=== PATIENT | male | born 1955 | race Caucasian/White ===

== ENCOUNTER 2020-03-29 08:30 | Outpatient (REF) | payer MEDICARE, SELFPAY ==
[2020-03-29 12:06] LABS: Alanine Aminotransferase 33 U/L (0-40); Albumin Level 3.8 g/dL (3.5-5.0); Alkaline Phosphatase 91 U/L (39-117); Anion Gap 11 (12-20); Aspartate Amino Transferase 24 U/L (5-37); Bilirubin Total 0.4 mg/dL (0.0-1.0); Blood Urea Nitrogen 25 mg/dL (9-16); Calcium 9.3 mg/dL (8.4-10.2); Carbon Dioxide 31 mmol/L (22-29); Chloride 104 mmol/L (96-108); Cholesterol 119 mg/dL; Estimated Glomerular Filt Rate 48; Glucose Fasting 119 mg/dL (60-99); HDL Cholesterol 40 mg/dL; LDL Cholesterol Calculated 56 mg/dl; Potassium 4.4 mmol/l (3.3-5.1); Sodium 142 mmol/L (135-145); Total Protein 6.6 g/dL (6.5-8.0); Triglycerides 116 mg/dL
[2020-03-29 12:08] LABS: Creatinine Urine 244.64 mg/dL; Microalbum/Creatinine Ratio Ur 108.7 ug/mg cr
[2020-03-29 12:11] LABS: Estimated Average Glucose 252 mg/dL; Hemoglobin A1c % 10.4 %
== END 2020-03-29 08:31 | disposition home or self-care (01) ==
LOC: HO.MANLR 08:30
PROVIDERS: PCP Internal Medicine; Visit Provider Internal Medicine
DX: E10.22 Type 1 diabetes mellitus with diabetic chronic kidney disease (principal)
CPT/HCPCS: 80053; 80061; 82043; 83036

== ENCOUNTER 2020-05-20 10:26 | Outpatient (REF) | payer MEDICARE, SELFPAY ==
[2020-05-20 13:42] LABS: Estimated Average Glucose 237 mg/dL; Hemoglobin A1c % 9.9 %
== END 2020-05-20 10:27 | disposition home or self-care (01) ==
LOC: HO.MANLR 10:26
PROVIDERS: PCP Internal Medicine; Visit Provider Internal Medicine
DX: E10.22 Type 1 diabetes mellitus with diabetic chronic kidney disease (principal)
CPT/HCPCS: 36415; 83036

== ENCOUNTER 2020-07-22 09:46 | Outpatient (REF) | payer MEDICARE, SELFPAY ==
[2020-07-22 12:26] LABS: CDIFF Ag Negative (Negative); CDIFF Internal ctrl Dots and bkg OK (V); CDiff Toxin Negative (Negative)
== END 2020-07-22 09:47 | disposition home or self-care (01) ==
LOC: HO.MANLNP 09:46
PROVIDERS: PCP Internal Medicine; Visit Provider Internal Medicine
DX: R19.7 Diarrhea, unspecified (principal)
CPT/HCPCS: 87045; 87046; 87177; 87209; 87324; 87449

== ENCOUNTER 2021-03-24 11:05 | Outpatient (REF) | payer MEDICARE, SELFPAY ==
[2021-03-24 13:01] LABS: Estimated Average Glucose 298 mg/dL
[2021-03-24 13:14] LABS: Alanine Aminotransferase 50 U/L (0-40); Alkaline Phosphatase 114 U/L (39-117); Anion Gap 15 (12-20); Aspartate Amino Transferase 42 U/L (5-37); Bilirubin Total 0.3 mg/dL (0.0-1.0); Blood Urea Nitrogen 30 mg/dL (9-16); Calcium 10.1 mg/dL (8.4-10.2); Carbon Dioxide 26 mmol/L (22-29); Chloride 104 mmol/L (96-108); Cholesterol 135 mg/dL; Estimated Glomerular Filt Rate 47; Glucose Fasting 95 mg/dL (60-99); HDL Cholesterol 43 mg/dL; LDL Cholesterol Calculated 64 mg/dl; Potassium 4.5 mmol/L (3.3-5.1); Sodium 140 mmol/L (135-145); Total Protein 7.1 g/dL (6.5-8.0); Triglycerides 140 mg/dL
[2021-03-24 13:28] LABS: Creatinine Urine 168.98 mg/dL
[2021-03-24 13:39] LABS: Microalbum/Creatinine Ratio Ur 389.3 ug/mg cr
== END 2021-03-24 11:06 | disposition home or self-care (01) ==
LOC: HO.MANLDS 11:05
PROVIDERS: PCP Internal Medicine; Visit Provider Internal Medicine
DX: E10.22 Type 1 diabetes mellitus with diabetic chronic kidney disease (principal)
CPT/HCPCS: 36415; 80053; 80061; 82043; 83036

== ENCOUNTER 2021-08-15 10:45 | Outpatient (REF) | payer MEDICARE, SELFPAY ==
[2021-08-15 13:32] LABS: Estimated Average Glucose 186 mg/dL; Hemoglobin A1c % 8.1 %
== END 2021-08-15 10:46 | disposition home or self-care (01) ==
LOC: HO.MANLDS 10:45
PROVIDERS: PCP Internal Medicine; Visit Provider Internal Medicine
DX: E10.22 Type 1 diabetes mellitus with diabetic chronic kidney disease (principal)
CPT/HCPCS: 36415; 83036

== ENCOUNTER 2022-10-20 10:53 | Outpatient (REF) | payer MEDICARE, SELFPAY ==
[2022-10-20 13:39] LABS: Estimated Average Glucose 123 mg/dL; Hemoglobin A1c % 5.9 %
[2022-10-20 14:04] LABS: Alanine Aminotransferase 48 U/L (0-40); Albumin Level 3.9 g/dL (3.5-5.0); Alkaline Phosphatase 120 U/L (39-117); Anion Gap 14 (12-20); Aspartate Amino Transferase 30 U/L (5-37); Bilirubin Total 0.4 mg/dL (0.0-1.0); Blood Urea Nitrogen 70 mg/dL (9-16); Calcium 10.1 mg/dL (8.4-10.2); Carbon Dioxide 21 mmol/L (22-29); Chloride 109 mmol/L (96-108); Estimated Glomerular Filt Rate 20; Glucose Random 160 mg/dL (60-115); Potassium 5.2 mmol/L (3.3-5.1); Sodium 139 mmol/L (135-145); Total Protein 6.8 g/dL (6.5-8.0)
[2022-10-20 14:11] LABS: Prostate Specific Antigen < 0.10 ng/mL (<0.05-4.0)
== END 2022-10-20 10:54 | disposition home or self-care (01) ==
LOC: HO.MANLNP 10:53
PROVIDERS: Visit Provider Internal Medicine
DX: Z12.5 Encounter for screening for malignant neoplasm of prostate (principal); E10.9 Type 1 diabetes mellitus without complications
CPT/HCPCS: 36415; 80053; 83036; 84153

== ENCOUNTER 2024-07-14 14:49 | Outpatient (REF) | payer MEDICARE, SELFPAY ==
--- OUTSIDE RECORDS SUMMARY | 2024-07-14 16:19 | XMS_ITS | Encounter Summary ---
Author Organization [facility], Address [address] [place] [address] Phone Care Team Providers Care Social Sciences Chair Name Role Phone Alexandro Dow DO Primary Care Provider [phone] Encounter Details Date Type Department Care Team (Late Contact Info) Description 07/23/2023 Orders Only [facility] Diane [address] [place] [address] Monty Pal MD [address] [place] [address] 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 [address] documented as of this encounter Visit Diagnoses Diagnosis Chronic kidney disease, stage 4 (severe) (HCC) documented in this encounter Care Teams Social Sciences Chair Relationship Specialty Start Date End Date Alexandro Dow DO [address] [facility] [place] [address] PCP - General 02/14/19 documented as of this encounter
--- OUTSIDE RECORDS SUMMARY | 2024-07-14 16:19 | XMS_ITS | Encounter Summary ---
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 [phone] documented as of this encounter Visit Diagnoses Not on filedocumented in this encounter Care Teams Ornamental Ironworker Helper Relationship Specialty Start Date End Date Victor M DO [address] [place] [address] PCP - General 02/14/19 documented as of this encounter
--- OUTSIDE RECORDS SUMMARY | 2024-07-14 16:19 | XMS_ITS | Encounter Summary ---
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 [phone] documented as of this encounter Visit Diagnoses Not on filedocumented in this encounter Care Teams Junior Graphic Designer Relationship Specialty Start Date End Date Victor M DO [address] [place] [address] PCP - General 02/14/19 documented as of this encounter
--- OUTSIDE RECORDS SUMMARY | 2024-07-14 16:19 | XMS_ITS | Encounter Summary ---
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 [phone] documented as of this encounter Visit Diagnoses Not on filedocumented in this encounter Care Teams Research Quality Assurance Analyst Relationship Specialty Start Date End Date Victor M DO [address] [place] [address] PCP - General 02/14/19 documented as of this encounter
--- OUTSIDE RECORDS SUMMARY | 2024-07-14 16:19 | XMS_ITS | Encounter Summary ---
Author Organization [facility], Address [address] [place] [address] Phone Care Team Providers Care Labor Relations Teacher Name Role Phone Alexandro Dow DO Primary Care Provider [phone] Encounter Details Date Type Department Care Team (Late Contact Info) Description 08/20/2023 Orders Only [facility] Tez [address] [place] [address] Monty Pal MD [address] [place] [address] 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 [address] documented as of this encounter Visit Diagnoses Diagnosis Chronic kidney disease, stage 4 (severe) (HCC) documented in this encounter Care Teams Labor Relations Teacher Relationship Specialty Start Date End Date Alexandro Dow DO [address] [facility] [address] PCP - General 02/14/19 documented as of this encounter
--- OUTSIDE RECORDS SUMMARY | 2024-07-14 16:19 | XMS_ITS | Encounter Summary ---
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 [phone] documented as of this encounter Visit Diagnoses Not on filedocumented in this encounter Care Teams Landcare Officer Relationship Specialty Start Date End Date Victor M DO [address] [place] [address] PCP - General 02/14/19 documented as of this encounter
--- OUTSIDE RECORDS SUMMARY | 2024-07-14 16:19 | XMS_ITS | Encounter Summary ---
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 [phone] documented as of this encounter Visit Diagnoses Not on filedocumented in this encounter Care Teams Outpatient Surgery Rn Relationship Specialty Start Date End Date Victor M DO [address] [place] [address] PCP - General 02/14/19 documented as of this encounter
--- OUTSIDE RECORDS SUMMARY | 2024-07-14 16:19 | XMS_ITS | Encounter Summary ---
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 [phone] documented as of this encounter Visit Diagnoses Not on filedocumented in this encounter Care Teams Body Component Engineer Relationship Specialty Start Date End Date Victor M DO [address] [place] [address] PCP - General 02/14/19 documented as of this encounter
--- OUTSIDE RECORDS SUMMARY | 2024-07-14 16:19 | XMS_ITS | Encounter Summary ---
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 [phone] documented as of this encounter Visit Diagnoses Not on filedocumented in this encounter Care Teams Drive Man Relationship Specialty Start Date End Date Victor M DO [address] [place] [address] PCP - General 02/14/19 documented as of this encounter
--- OUTSIDE RECORDS SUMMARY | 2024-07-14 16:19 | XMS_ITS | Encounter Summary ---
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 [phone] documented as of this encounter Visit Diagnoses Not on filedocumented in this encounter Care Teams Data Communications Analyst Relationship Specialty Start Date End Date Victor M DO [address] [place] [address] PCP - General 02/14/19 documented as of this encounter
--- OUTSIDE RECORDS SUMMARY | 2024-07-14 16:19 | XMS_ITS | Clinical Summary ---
Author Organization [facility], Address [address] [place] [address] Phone Care Team Providers Care Manager Travel Name Role Phone Alexandro Dow DO Primary Care Provider [phone] Allergies Active Allergy Reactions Criticality Noted Date Comments Cat Dander Other (see comments) 08/26/2016 Gabapentin 06/01/2023 Other Reaction(s): Not available Brain fog Severe memory loss Niacin Other (see comments) High 10/05/2017 Penicillin G 01/27/2022 Penicillins Anaphylaxis,Other (s ee comments) High 09/27/2012 Pollen Extract Other (see comments) 08/26/2016 Quinolones Medium 11/20/2021 Other reaction(s): Hepatitis Medications aspirin 81 MG tablet Take 81 mg by mouth daily Active rosuvastatin (CRESTOR) 40 MG tablet Take 1 tablet by mouth 1 (one) time each day 10/29/19 13 Active nitroglycerin (NITROSTAT) 0.4 MG SL tablet nitroglycerin 0.4 mg sublingual tablet 01/26/20 19 Active metoprolol tartrate (LOPRESSOR) 50 MG tablet Take 50 mg by mouth in the morning and 50 mg in the evening. 10/22/19 17 Active isosorbide mononitrate (IMDUR) 60 MG 24 hr tablet Take 60 mg by mouth at bed time 11/20/19 13 Active insulin lispro (HumaLOG) 100 UNIT/ML injection Humalog U-100 Insulin 100 unit/mL subcutaneous solution INJECT 20 UNIT SUBCUTANEOUSLY FIVE TIMES A DAY 06/18/19 17 Active insulin glargine (LANTUS) 100 UNIT/ML injection Inject 50 Units under the skin daily 11/20/19 13 Active albuterol HFA (PROVENTIL HFA;VENTOLIN HFA) 108 (90 Base) MCG/ACT inhaler Inhale 2 puffs every 6 (six) hours if needed Active ezetimibe (ZETIA) 10 MG tablet Take 10 mg by mouth daily 08/08/19 20 Active Glucagon (Baqsimi One Pack) 3 MG/DOSE powder Administer 3 mg into affected nostril(s) 05/13/19 22 Active Epoetin Jason-epbx (Retacrit) 56244 UNIT/ML solution Inject 20,000 Units as directed every 14 (fourteen) days 6 mL 3 09/16/19 23 Active metoclopramide (REGLAN) 10 MG tablet 03/18/20 23 Active furosemide (LASIX) 40 MG tablet Take 1 tablet (40 mg total) by mouth 1 (one) time each day 90 tablet 3 08/10/19 24 025 Active Lokelma 10 g pack Take 10 g by mouth 3 (three) times a week 30 each 11 11/22/19 24 025 Active NovoLOG 100 UNIT/ML solution INJECT 8-20 UNITS THREE TIMES DAILY NEEDED PER SLIDING SCALE 12/21/19 24 Active Active Problems Problem Noted Date Diagnosed Date Renal disorder due to type 1 diabetes mellitus 1 04/18/2023 Acidosis 06/03/2023 Hypotension 04/17/2022 Overview (09/09/2022): Last Assessment & Plan: Unclear etiology, vascular tox screen be done, lactate was initially 11, but normalized in 3 hours after 2L of IVF. Patient was hypotensive at the initial lactate reading, however I suspect perhaps lactate was falsely elevated (tourniquet on too long for blood draw?). -treat with additional IV fluids -Monitor electrolytes Hyperkalemia 01/27/2022 Chronic kidney disease, stage 4 (severe) 022 Acute nontraumatic kidney injury 11/20/2021 Overview (09/09/2022): Last Assessment & Plan: LINDA on CKD stage III. Baseline creatinine as of a month ago was 1.5. Creatinine is currently 2.3. -Continue to monitor -Continue to renally dose antibiotics and other medications -Avoid nephrotoxic agents including NSAIDs Last Assessment & Plan: -Cr slightly above baseline Acute low back pain 10/28/2021 Insulin treated type 2 diabetes mellitus 021 Overview (08/08/2021): Last Assessment & Plan: Diabetes diagnosed at age 27, reportedly very fit with healthy lifestyle at the time points toward type 1 diabetes, not requiring insulin during first several years after diagnosis may be related to honeymoon phase or simply slowly progressing type 1 diabetes Now using FSL2, continues to wide variability We discussed glucose data as well as insulin dosing adjustments to help stabilize glucose patterns José will change Lantus dosing to morning, this may reduce risk of inside polisher hypoglycemia if he is experiencing a more robust effect of this in the few hours after his dose, will continue the same dosage at this time and we will evaluate this with eval of CGM data For now José will continue his current Humalog SSI, however it is likely that he may require higher dosing at meals and perhaps more modest dosing at bedtime, current bedtime dosing of Humalog due to consistent elevations in glucose at bedtime may also be contributing to early am hypoglycemia risk 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 to renal insufficiency 0 08/22/2020 Proteinuria 08/22/2020 Chronic kidney disease due to hypertension 07/24 Anemia in chronic kidney disease 07/25/2019 Carcinoma of prostate 06/30/2017 Renal disorder due to type 2 diabetes mellitus 0 06/30/2017 Overview (08/08/2021): Last Assessment & Plan: Most recent GFR on file is 56 Blood pressure is borderline, goal is <130/80 Microalbuminuria 06/30/2017 Retinopathy due to diabetes mellitus 06/30/2017 Overview (08/08/2021): Last Assessment & Plan: Routine eye care is up to date Blood pressure is borderline, goal is <130/80 Hypercholesterolemia 06/07/2017 Overview (08/08/2021): Last Assessment & Plan: Excellent profile with an LDL and HDL in the 40s. Creatinine was 1.5 with a BUN of 30 and a potassium of 4.9. Last Assessment & Plan: Most recent lipid panel reviewed LDL is at goal, goal is <55 due to CAD, CVA hx and DM Continues on statin therapy at high intensity and zetia Essential hypertension 06/04/2017 Overview (08/08/2021): Last Assessment & Plan: I did neglect to mention that he had a trip and fall and fractured a rib so he is in some discomfort. At home he says his blood pressures are typically in the 120s and occasional 130s. Like to see him consistently under 130 but I have made no changes today. Last Assessment & Plan: Blood pressure is elevated today 146/76. He is on Isosorbide mononitrate 60 mg daily, metoprolol 50 mg twice daily, he will manage medications without change. He is asked to follow heart healthy diet including low-sodium and to exercise. He will have his blood pressure monitored at the several doctor appointments he has coming up and if he notices his blood pressures are continued to be elevated he will call this office for adjustment to his medications. Coronary atherosclerosis 06/04/2017 Overview (08/08/2021): 12/2002 PCI CHRIS RCA 11/2012 PCI ?CHRIS RCA X 2 Geraldine Last Assessment & Plan: Is a little angina is unchanged. He finds this very tolerable and not to change any of his medications. He is aware of the need to report symptoms should accelerate. He understands that he will be transferred to Dr. Abraham as of 12 April 12/2002 PCI CHRIS RCA 11/2012 PCI ?CHRIS RCA X 2 Geraldine Last Assessment & Plan: Currently asymptomatic at this time. He is on Imdur 60 mg daily, metoprolol 50 mg twice daily, rosuvastatin 40 mg daily, aspirin 81 mg daily which she will remain on lifelong. Localized edema 06/04/2017 Overview (08/22/2020): 12/2016 R SVG Ablation Last Assessment & Plan: Improved. Resolved Problems Problem Noted Date Diagnosed Date Resolved Date Anemia in chronic kidney disease 09/15/2022 09/15/2022 Acute kidney failure with tubular necrosis 01/14/2022 12/16/2022 Anemia 06/30/2017 12/16/2022 Encounters Date Type Department Care Team Description 06/27/2024 Telephone [facility], [address] [place] [address] Elidia Lay from Last 3 Months Immunizations Name Administration Dates Next Due Influenza (IM) Preservative Free 12/15/2016,11/10,02/23/2015 Influenza Split High Dose Pr eservative Free IM 01/03/2019,02/03/2018,02/09/2017 Influenza Vaccine, Quadrival ent, Adjuvanted 02/20/2021,01/19/2020,01/16/2020 Influenza, Quadrivalent, Pre servative Free 01/12/2018 Influenza, Quadrivalent, Wit h Preservative 02/20/2021,01/16/2020,11/29/2018,01/12 Influenza, Trivalent, Adjuvanted 11/29/2018 Influenza, Unspecified 01/22/2022 [employer] [facility] SARS-COV-2 06/20/2020 [employer] SARS-COV-2 08/21/2021,08/21/2021,04/18/19 22 Pneumococcal Conjugate 13-Valent 11/29/2018 Pneumococcal Polysaccharide 01/12/2020,0 06/19/2019,06/19/2019,02/23 SARS-CoV-2, Unspecified 08/21/2021,04/18,06/20/2020,06/20 Shingrix 11/29/2018 Zoster 11/29/2018 Family History Medical History Relation Comments Cancer Father Non small cell l jose Diabetes Father Gout Father Hypertension Father Diabetes Paternal Grandfather Relation Status Comments Father Mother Alive Paternal Grandfather Social History Tobacco Use Types Packs/Day Years [...] Job Start Date Job End Date 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 on file Not on file Last Filed Vital Signs Vital Sign Reading Time Taken Comments Blood Pressure 122/60 12/16/2022 1:13 PM EDT Pulse 66 12/16/2022 1:13 PM EDT Temperature 36.7 ??C (98 ??F) 02/20/2019 12:00 PM EST Respiratory Rate 14 12/16/2022 1:13 PM EDT Oxygen Saturation - - Inhaled Oxygen Concentration - - Weight 77.1 kg (170 lb) 12/16/2022 1:13 PM EDT Height 180.3 cm (5' 11 ) 12/16/2022 1:13 PM EDT Body Mass Index 23.71 12/16/2022 1:13 PM EDT Plan of Treatment Upcoming Encounters Date Type Department Care Team (Late st Contact Info) Description 08/25/2024 11:15 AM EDT Office Visit [facility], [address] [place] [address] Monty Pal MD [address] [place] [phone] Health Maintenance Due Date Last Done Comments Colorectal Cancer Screening: Annual FOBT 2002 Colorectal Cancer Screening: Colonoscopy 2002 Colorectal Cancer Screening: Sigmoidoscopy 2002 Diabetes: Hemoglobin A1C 07/03/2019 Diabetes: Ophthalmology Exam 07/03/2019 Diabetes: Pedal Pulse Checked 07/03/2019 Diabetes: Sensory Foot Exam 07/03/2019 Diabetes: Visual Foot Exam 07/03/2019 Influenza Vaccine (#1) 2023 2, 02/20/2021, 02/20/2021, Additional history exists Pneumococcal Vaccine: 65+ Years Completed 01/12/2020, 06/19/2019, 06/19/2019, Additional history exists Hepatitis B Vaccine Aged Out No longe r eligible based on patient's age to complete this topic Insurance [facility] Care Teams Manager Travel Relationship Specialty Start Date End Date Alexandro Dow DO [address] [place] [address] PCP - General 02/14/19
--- OUTSIDE RECORDS SUMMARY | 2024-07-14 16:19 | XMS_ITS | Encounter Summary ---
Author Organization [facility] Address [address] [place] [address] Phone Care Team Providers Care Speech Therapy Director Name Role Phone Alexandro Dow DO Primary Care Provider [phone] Encounter Details Date Type Department Care Team (Late Contact Info) Description 09/14/2023 Documentation Only [facility] [address] [place] [address] Alise Spicer [address] [place] [id number] Social History Tobacco Use Types Packs/Day Years [...] Job Start Date Job End Date 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 [address] documented as of this encounter Visit Diagnoses Not on filedocumented in this encounter Care Teams Speech Therapy Director Relationship Specialty Start Date End Date Alexandro Dow DO [address] [facility] [place] [address] PCP - General 02/14/19 documented as of this encounter
--- OUTSIDE RECORDS SUMMARY | 2024-07-14 16:19 | XMS_ITS | Encounter Summary ---
Author Organization [facility], Address [address] [place] [address] Phone Care Team Providers Care Firm Administrator Name Role Phone Alexandro Dow DO Primary Care Provider [phone] Encounter Details Date Type Department Care Team (Late Contact Info) Description 06/25/2023 Orders Only [facility] Tez [address] [place] [address] Monty Pal MD [address] [place] [address] 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 [address] documented as of this encounter Visit Diagnoses Diagnosis Chronic kidney disease, stage 4 (severe) (HCC) documented in this encounter Care Teams Firm Administrator Relationship Specialty Start Date End Date Alexandro Dow DO [address] [facility] [place] [address] PCP - General 02/14/19 documented as of this encounter
--- OUTSIDE RECORDS SUMMARY | 2024-07-14 16:19 | XMS_ITS | Data Portability ---
Author Organization [facility] Address [address] [place] [address] Assessment Encounter Date Assessment Date Assessment LastModified by Organization Details LastModified Time 10/23/2022 10/23/2022 Patient agreed and verbally consents to this audio and video Telehealth appt via a secure platform [email or web address] Not available 10/23/2022 09:40:43 04/14/2024 04/14/2024 Patient agreed and verbally consents to this audio and video Telehealth appt via a secure platform [email or web address] Not available 04/14/2024 10:07:45 Plan of Treatment Reminders Order Date Submit Date Provider Last Modified By Organization Details Last Modified Time Details Appointments Hospital F/U 2024 02:00P M DR PURDY Not available Not available Not available Lab ESR (erythroc yte sedimenta tion rate), blood 2023 024 [facility], [address], [place], [address], 06/11/2023 15:23:52 C-reactiv e protein, quantitat kathy, serum or plasma 2023 024 [employer] [employer] [facility], [address], [place], [address], 06/11/2023 15:23:52 TSH + free T4, serum 2023 024 [facility], [address], [place], [address], 06/18/2023 17:30:58 CBC w/ auto diff 2023 024 [facility], [address], [place], [address], 06/11/2023 15:23:52 iron + TIBC + ferritin, serum 2023 024 [facility], [address], [place], [address], 06/11/2023 15:23:52 Referral nutrition ist/dieti bonny referral 2022 023 [facility], [address], [place], [address], 09/16/2022 08:37:44 orthopedi c spine surgeon referral 2022 023 [facility], [address] [place], [address], 09/16/2022 08:37:40 Procedures None recorded. Surgeries None recorded. Imaging None recorded. Medication Orders baclofen 5 mg tablet 2022 023 [id number], [address], [place], [id number], 06/11/2023 15:07:40 Patient TargetsNo targets recorded. Patient InstructionsNo instructions recorded. Reason for Referral Orthopedic Spine Surgeon Ref erral for Degeneration of lumbar intervertebral disc pt has right LE weakness (has left leg amputation) and numbness Referring Physician: Chikis Esqueda, Internal Medicine, Encounter Date: 09/15/2022 Speed Operator/dietitian Refer ral for Hyperkalemia Referring Physician: Chikis Esqueda, Internal Medicine, Encounter Date: 09/15/2022 Results Created Date Observation Date Name Description Value Unit Range Abnormal Flag Note LastModifiedBy Organization Detail LastModifiedTime 09/15/19 23 09/13/2022 MRI, lumba r spine , w/o contr ast No observ ation record ed. [facility] [address] [place] [address], [address], 09/15/2022 10:47:48 03/31/20 24 03/30/2024 US, carlos yu, mayra id arter y No observ ation record ed. [email or web address] [facility] [address], [place], [address], 03/31/2024 08:36:10 06/29/19 25 06/28/2024 CT, head + brain , w/o contr ast No observ ation record ed. [address] (Emergency Room) [address] [place], [address], 06/28/2024 08:20:08 06/29/19 25 06/28/2024 CT, angio gram, chest , w/wo contr ast No observ ation record ed. [address] (Emergency Room) [address] [place], [address], 06/28/2024 08:20:48 Result Notes None recorded. Problems Name Problem SNOMED Code Status Onset Date Resolution Date Notes Provider Name and Address Organization Details Recorded Time Diabetic peripher al neuropat hy 744805287 Active 2017 Not Available 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 033407473 Active 2020 Alexandro Purdy DO [address] [place] [address], [address], [facility] 1 15:05:18 Diarrhea l disorder 963175430 Active 2020 Alexandro Purdy DO [address] [place] [address], [address], [facility] 1 10:59:49 Right carotid artery stenosis 57387012264 9100 Active 2020 Alexandro Purdy, DO [address] [place] [address], [address], [facility] 1 11:43:36 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 714269499 Active 2020 Alexandro Purdy DO [address] [place] [address], [address], [facility] 1 11:37:38 Stable angina 140287022 Active 2021 Alexandro Purdy DO [address] [place] [address], [address], [facility] 2 09:59:24 Chronic obstruct kathy pulmonar y disease 59995539 Active 2021 Alexandro Purdy DO [address] [place] [address], [address], [facility] 2 09:59:34 Acute osteomye litis of phalanx of toe 245992972 Active 2021 Alexandro Purdy DO [address] [place] [address], [address], [facility] 2 14:16:03 Acute low back pain 385403384 Active 2021 TIM RITCHIE [address] [place] [address], [address], [facility] 2 15:21:29 Low back pain 787560101 Active 2021 TIM RITCHIE [address] [place] [address], [address], [facility] 2 10:29:00 Paresthe samuel of lower extremit y 082194580 Active 2022 Alexandro Purdy DO [address] [place] [address], [address], [facility] 3 15:23:27 Type 2 diabetes mellitus 69092811 Completed 201709/17/2017 TIM RITCHIE [address] [place], [address], [facility] 4 14:38:53 Gastroes ophageal reflux disease 963037213 Active 2017 Not Available [facility] 21:43:00 Cerebrov ascular accident 885765859 Active 2017 Not Available [facility] 21:43:00 Coronary arterios clerosis 60952026 Active 2017 Not Available [facility] 21:43:00 Myocardi al infarcti on 31705634 Active 2017 Not Available [facility] 21:43:00 Retinopa thy due to diabetes mellitus 6501642 Active 2017 Not Available [facility] 1 21:43:00 Gastropa resis due to type 2 diabetes mellitus 356777340 Completed 201708/12/2020 Alexandro Purdy DO [address] [place], [address], [facility] 1 10:57:12 Disorder of kidney due to diabetes mellitus 991661295 Active 2017 Not Available [facility] 1 21:43:00 Microalb uminuria 267799285 Active 2017 Not Available [facility] 1 21:43:00 Carcinom a of prostate 764004122 Active 2017 Not Available [facility] 21:43:00 History of tobacco use 31979619523 03 Active 2017 Not Available [facility] 21:43:00 B12 deficien cy monitori ng status 065089594 Active 2017 Not Available [facility] 21:43:00 Acute non-ST segment elevatio n myocardi al infarcti on 456871215 Active 2017 Not Available [facility] 1 21:43:00 Chronic kidney disease stage 3 733680764 Active 2017 Not Available [facility] 1 21:43:00 Pulmonar y emphysem a 70311198 Active 2017 Not Available [facility] 1 21:43:00 Anemia 185547758 Active 2017 Not Available [facility] 1 21:43:00 Hyperkal emia 68186277 Active 2022 TIM RITCHIE [address] [place], [address], [facility] 3 15:42:29 Atrial fibrilla tion 60382921 Active 2022 TIM RITCHIE [address] [place], [address], [facility] 3 15:44:28 Acute osteomye litis of phalanx of toe 772046501 Active 2022 TIM RITCHIE [address] [place], [address], [facility] 3 15:52:15 Degenera tion of lumbar interver tebral disc 95785114 Active 2022 TIM RITCHIE [address] [place], [address], [facility] 3 15:35:06 Pain in right lower limb 146150916 Active 2022 TIM RITCHIE [address] [place], [address], [facility] 3 15:39:20 Cramp in lower limb 487067469 Active 2022 TIM RITCHIE [address] [place], [address], [facility] 3 15:42:46 Spasm 63101941 Active 2022 TIM RITCHIE [address] [place], [address], [facility] 3 12:45:28 Retinopa thy due to diabetes mellitus 3376795 Active 2022 TIM RITCHIE [address] [place], [address], [facility] 3 09:39:56 Acute urinary tract infectio n 572846868 Active 2022 TIM RITCHIE [address] [place], [address], [facility] 3 12:30:08 Night sweats 21337281 Active 2023 TIM RITCHIE [address] [place], [address], [facility] 4 15:20:51 Iron deficien cy anemia 04421222 Active 2023 TIM RITCHIE [address] [place], [address], [facility] 4 15:21:16 Chronic hiccup 081856904 Active 2023 TIM RITCHIE [address] [place] [address], [address], [facility] 4 14:11:21 Type 2 diabetes mellitus 81152726 Active 2023 TIM RITCHIE [address] [place] [address], [address], [facility] 4 14:38:53 Bilatera l weakness of upper limbs 50863745434 506857 Active 2023 TIM RITCHIE [address] [place] [address], [address], [facility] 4 15:02:38 Ischemic heart disease 642834717 Active 2017 Not Available [facility] 1 21:43:00 Hypercho lesterol emia 49914935 Active 2017 Not Available [facility] 21:43:00 Notes:Some problems listed i n Documents: #[id number], #[id number], #[id number], #[id number] could not be added to this patient's chart. Please review these documents and add these problems to the patient's chart manually as needed. Problem Notes None recorded. Procedures Surgical History None recorded. Imaging Results Imaging Date Name Status LastModified by Organiz ation Details LastModified Time 09/13/2022 MRI, lumbar spine, w/o contrast completed [facility] [address], [place], [address], 09/15/2022 10:47:48 03/30/2024 US, duplex, carotid artery completed [email or web address] [facility] [address], [place], [address], 03/31/2024 08:36:10 06/28/2024 CT, head + brain, w/o contrast completed [address] (Emergency Room) [address] [place], [address], 06/28/2024 08:20:08 06/28/2024 CT, angiogram, chest, w/wo contrast completed [address] (Emergency Room) [address] [place], [address], 06/28/2024 08:20:48 Procedure Notes None recorded. Medical Equipment None Reported. Allergies Allergen ID Allergen Name Allergen Category Reaction Reaction Severity Criticality Documentation Date Start Date Code Code System Note Provider Name and Address Organization Details Recorded Time 640 penicilli n V Not available Not available Not available Not available 06/30/2017 7984 RxNorm Radha najera [facility] 8 15:02:18 641 niacin medicatio n Not available Not available Not available 06/30/2017 7393 RxNorm Radha najera [place] [facility] 8 15:02:23 6891 gabapenti n medicatio n Not available Not available Not available 09/15/2022 53067 RxNorm TIM RITCHIE [address] [place], [address], [facility] 3 14:43:28 Medications Name Sig Start Date Stop Date Status Note LastModified by Organization Details LastModified Time rosuvastat in calcium 40 mg tabs 1 qd 11/29 completed Not Available Not Available Not Available clindamyci n hcl 300 mg caps 09/17 completed Not Available Not Available Not Available metoprolol tartrate 50 mg tabs 1 bid 06/07 completed Not Available Not Available Not Available furosemide 20 mg tabs take 2 tablets by mouth once a day 06/10 completed Not Available Not Available Not Available incruse ellipta 62.5 mcg/inh aepb 07/22 completed Not Available Not Available Not Available humalog 100 unit/ml soln per sliding scale 06/07 completed Not Available Not Available Not Available nystatin/t riamcinolo ne acetonide 272809-1.1 unit/gm-% crea 07/22 completed Not Available Not Available Not Available lantus 100 unit/ml soln 07/22 completed Not Available Not Available Not Available clindamyci n hcl 150 mg caps 08/03 completed Not Available Not Available Not Available nitroglyce rin 0.4 mg subl 11/26 completed Not Available Not Available Not Available isosorbide mononitrat e er 60 mg tb24 1 qd 06/07 completed Not Available Not Available Not Available onetouch judy verio 03/19 completed Not Available Not Available Not Available lantus 100 unit/ml soln 11/26 completed Not Available Not Available Not Available nitroglyce rin 0.4 mg subl 07/22 completed Not Available Not Available Not Available tramadol hcl 50 mg tabs 09/17 completed Not Available Not Available Not Available ezetimibe 10 mg tabs 1 qd 12/02 completed Not Available Not Available Not Available proair hfa 108 (90 base) mcg/act aers 09/17 completed Not Available Not Available Not Available mupirocin 2 % oint 07/22 completed Not Available Not Available Not Available furosemide 40 mg tablet active Not Available Not Available Not Available clindamyci n HCl 300 mg capsule 03/07 completed Not Available Not Available Not Available trazodone 50 mg tablet 06/10 completed Not Available Not Available Not Available fosfomycin tromethami ne 3 gram oral packet 06/10 completed Not Available Not Available Not Available ofloxacin 0.3 % eye drops INSTILL 1 DROP IN LEFT EYE FOUR TIMES DAILY BEFORE SURGERY FOR 3 DAYS. CONTINUE AFTER SURGERY 08/12 completed Not Available Not Available Not Available metoprolol tartrate 100 mg tablet Take 1 tablet twice a day by oral route. 08/18 completed Not Available Not Available Not Available tizanidine 4 mg tablet TAKE 1 TABLET BY MOUTH EVERY 6 HOURS FOR 14 DAYS NEEDED 08/25 completed Not Available Not Available Not Available sulfametho xazole 400 mg-trimeth oprim 80 mg tablet TAKE 1 TABLET BY MOUTH TWICE DAILY 06/10 completed Not Available Not Available Not Available hydrocodon e 5 mg-acetami nophen 325 mg tablet 06/07 completed Not Available Not Available Not Available isosorbide mononitrat e ER 30 mg tablet,ext ended release 24 hr take 3 tab daily active Not Available Not Available No t Available Lantus U-100 Insulin 100 unit/mL subcutaneo us solution ADMINISTE R 25 UNITS UNDER THE SKIN DAILY active Not Available Not Available No t Available diphenoxyl ate-atropi ne 2.5 mg-0.025 mg tablet TAKE 1 TABLET BY MOUTH THREE TIMES DAILY NEEDED 06/10 completed Not Available Not Available Not Available ciprofloxa david 500 mg tablet Take 1 tablet every 12 hours by oral route for 10 days. active Not Available Not Available No t Available sulfametho xazole 800 mg-trimeth oprim 160 mg tablet TAKE 1 TABLET BY MOUTH EVERY 12 HOURS FOR 10 DAYS active Not Available Not Available No t Available hydrocodon e 10 mg-acetami nophen 325 mg tablet TAKE 1 TABLET BY MOUTH EVERY 4 HOURS FOR 7 DAYS NEEDED 06/10 completed Not Available Not Available Not Available Cholestyra mine Light 4 gram powder for suspension in a packet MIX AND DRINK 1 PACKET BY MOUTH THREE TIMES DAILY 07/07 completed Not Available Not Available Not Available pantoprazo le 20 mg tablet,del ayed release 07/07 completed Not Available Not Available Not Available ketorolac 0.5 % eye drops 08/12 completed Not Available Not Available Not Available isosorbide mononitrat e ER 60 mg tablet,ext ended release 24 hr TAKE 1 TABLET BY MOUTH EVERY DAY active Not Available Not Available No t Available ofloxacin 0.3 % ear drops active Not Available Not Available Not Available prednisolo ne acetate 1 % eye drops,susp ension SHAKE LIQUID AND INSTILL 1 DROP IN LEFT EYE FOUR TIMES DAILY AFTER SURGERY 08/12 completed Not Available Not Available Not Available diazepam 2 mg tablet TAKE 1 TABLET BY MOUTH TWICE DAILY FOR 5 DAYS active Not Available Not Available No t Available baclofen 10 mg tablet TAKE 1 TABLET BY MOUTH THREE TIMES DAILY FOR 15 DAYS NEEDED 09/15 completed Not Available Not Available Not Available metoprolol tartrate 50 mg tablet TAKE 1 TABLET BY MOUTH TWICE DAILY active Not Available Not Available No t Available nitroglyce rin 0.4 mg sublingual tablet DISSOLVE ONE TABLET UNDER THE TONGUE NEEDED FOR CHEST PAIN active Not Available Not Available No t Available mupirocin 2 % topical ointment APPLY A SMALL AMOUNT TO THE AFFECTED AREA BY TOPICAL ROUTE 3 TIMES PER DAY 09/19 completed Not Available Not Available Not Available furosemide 20 mg tablet TAKE ONE TABLET BID active Not Available Not Available No t Available gabapentin 100 mg capsule 08/25 completed Not Available Not Available Not Available Novolog U-100 Insulin aspart 100 unit/mL subcutaneo us solution INJECT 8 TO 20 UNITS UNDER THE SKIN THREE TIMES DAILY NEEDED PER SLIDING SCALE active Not Available Not Available No t Available insulin lispro (U-100) 100 unit/mL subcutaneo us solution 08/15 completed Not Available Not Available Not Available cefuroxime axetil 500 mg tablet TAKE 1 TABLET BY MOUTH TWICE DAILY 06/10 completed Not Available Not Available Not Available gentamicin 40 mg/mL injection solution INJECT 40 MG PER ML/2ML VIAL BRING WITH YOU TO YOUR APPOINTME NT 06/10 completed Not Available Not Available Not Available albuterol sulfate HFA 90 mcg/actuat ion aerosol inhaler inhale 2 puffs every 4 hours as needed active Not Available Not Available No t Available SSD 1 % topical cream APPLY TO RIGHT FOOT WOUND BY TOPICAL ROUTE DAILY active Not Available Not Available No t Available Cipro 250 mg tablet Take 1 tablet every 12 hours by oral route for 7 days. 07/22 completed Not Available Not Available Not Available ketoconazo le 2 % topical cream APPLY TO THE AFFECTED AREA(S) BY TOPICAL ROUTE ONCE DAILY 06/24 completed Not Available Not Available Not Available doxycyclin e hyclate 100 mg tablet TAKE 1 TABLET BY MOUTH TWICE DAILY 06/10 completed Not Available Not Available Not Available metoclopra mide 10 mg tablet 06/10 completed Not Available Not Available Not Available oxycodone 5 mg tablet TAKE 1 TABLET BY MOUTH EVERY 8 TO 12 HOURS NEEDED FOR PAIN. MAY REQUEST PARTIALFI LL active Not Available Not Available No t Available magnesium 200 mg tablet Take 4 tablets every day by oral route. 06/10 completed Not Available Not Available Not Available Pneumovax- 23 25 mcg/0.5 mL injection syringe 04/01 completed Not Available Not Available Not Available insulin lispro (U-100) 100 unit/mL subcutaneo us pen 06/10 completed Not Available Not Available Not Available ezetimibe 10 mg tablet Take 1 tablet every day by oral route. active Not Available Not Available No t Available Novolog FlexPen U-100 Insulin aspart 100 unit/mL (3 mL) subcutaneo us Inject 20 units 3 times a day by subcutane ous route as needed for 30 days. active Not Available Not Available No t Available rosuvastat in 10 mg tablet TAKE 1 TABLET FOR PAIN EVERY NIGHT AT BEDTIME 01/30 completed Not Available Not Available Not Available rosuvastat in 40 mg tablet TAKE 1 TABLET BY MOUTH EVERY DAY active Not Available Not Available No t Available metoprolol tartrate 25 mg tablet 07/07 completed Not Available Not Available Not Available Spiriva with HandiHaler 18 mcg and inhalation capsules inhale 1 puff by mouth once daily 08/03 completed Not Available Not Available Not Available nitrofuran toin monohydrat e/macrocry stals 100 mg capsule TAKE 1 CAPSULE BY MOUTH TWICE DAILY 06/10 completed Not Available Not Available Not Available Sure Comfort Insulin Syringe 0.5 mL 30 gauge x 1/2 USE TO INJECT INSULIN SUBCUTANE OUS 5 TIMES A DAY 2024 active Not Available Not Available Not Avai lable calcium 400mg once a day 03/19 completed Not Available Not Available Not Available zinc active Not Available Not Availa ble Not Available Calcium 600 2,000 daily active Not Available Not Available No t Available Aspir-81 Take one tabelt once a day active Not Available Not Available No t Available Vitamin D 2,000 units per day active Not Available Not Available No t Available fiber 500 mg qd active Not Available Not Mariposa ilable Not Available Vitamin D3 active 2,000 daily Not Available Not Available Not Available Calcium 600 with Vitamin D3 2000 once a day 09/01 completed Not Available Not Available Not Available Lantus Solostar U-100 Insulin 100 unit/mL (3 mL) subcutaneo us pen 07/07 completed Not Available Not Available Not Available GaviLyte-G 236 gram-22.74 gram-6.74 gram-5.86 gram oral solution 07/22 completed Not Available Not Available Not Available Prevnar 13 (PF) 0.5 mL intramuscu lar syringe 03/07 completed Not Available Not Available Not Available Probiotic once a day Culturell e 07/07 completed Not Available Not Available Not Available BD AutoShield Duo Pen Needle 30 gauge x 3/16 06/10 completed Not Available Not Available Not Available OneTouch Verio test strips USE TO TEST FOUR TIMES DAILY active Not Available Not Available No t Available Incruse Ellipta 62.5 mcg/actuat ion powder for inhalation INHALE 1 PUFF BY MOUTH EVERY DAY active Not Available Not Available No t Available OneTouch Verio Flex meter Test 4 x day 07/12 completed Not Available Not Available Not Available Easy Touch FlipLock Insulin syringe 1 mL 30 gauge x 1/2 inject insulin 5 times per day 2023 active Not Available Not Available Not Avai lable Fiasp U-100 Insulin 100 unit/mL subcutaneo us solution INJECT 8 TO 20 UNITS UNDER THE SKIN FOUR TIMES DAILY 08/19 completed Not Available Not Available Not Available Fiasp FlexTouch U-100 Insulin 100 unit/mL (3 mL) subcutaneo us pen INJECT 8 TO 20 UNITS UNDER THE SKIN FOUR TIMES DAILY 08/16 completed Not Available Not Available Not Available Shingrix (PF) 50 mcg/0.5 mL intramuscu lar suspension , kit 03/07 completed Not Available Not Available Not Available baclofen 5 mg tablet TAKE 1/2 TABLET BY MOUTH EVERY DAY FOR 14 DAYS NEEDED 06/10 completed Not Available Not Available Not Available Lokelma 5 gram oral powder packet 07/07 completed Not Available Not Available Not Available Lokelma 10 gram oral powder packet TAKE 10 GRAMS BY MOUTH 3 TIMES A WEEK active Not Available Not Available No t Available Fluad 65yr up(PF)45 mcg(15 mcgx3)/0.5 mL intramuscu lar syringe 03/07 completed Not Available Not Available Not Available Baqsimi 3 mg/actuati on nasal spray SPRAY INTO NOSTRIL ONCE NEEDED 07/07 completed Not Available Not Available Not Available FreeStyle Edilson 2 Sensor kit USE DIRECTED active Not Available Not Available No t Available Fluad Quad ( 65yr up)(PF) 60 mcg (15 mcg x 4)/0.5mL IM syringe 04/01 completed Not Available Not Available Not Available Vitals Date Recorded Body height Provider Name an d Address Organization Details Last Updated DateTime 08/25/2022 180.34 cm TIM RITCHIE [address] [place] [address], [address] 08/25/2022 12:02:38 Date Recorded Body height Body mass index (BMI) Body weight Oxygen saturation Oxygen saturation in Arterial blood by Pulse oximetry Heart rate Systolic blood pressure Diastolic blood pressure Provider Name and Address Organization Details Last Updated DateTime 3 180.34 cm 23.7 kg/m2 11386.7 g 100 % 100 % 60 /min 144 mm[Hg] 60 mm[Hg] Erma [facility] 3 14:29:15 Date Recorded Body height Heart rate Oxygen saturation Oxygen saturation in Arterial blood by Pulse oximetry Systolic blood pressure Diastolic blood pressure Provider Name and Address Organization Details Last Updated DateTime 4 180.34 cm 68 /min 98 % 98 % 140 mm[Hg] 60 mm[Hg] Erma [facility] 4 15:01:31 Social History Question Answer Notes LastModified by Organizat ion Details LastModified Time Tobacco Smoking Status Former Smoker Not Available [facility] 02/13/2020 03:36:24 What Was The Date Of Your Most Recent Tobacco Screening? 06/11/2023 Information not available 06/11/2023 How Many Years Have You Smoked Tobacco? 6 [id number] Information not available 02/13/2020 Do You Or Have You Ever Used Any Other Forms Of Tobacco Or Nicotine? No Information not available 07/07/2022 Sex: Unknown Functional Status None recorded. Mental Status None recorded. Family History Nothing Reported. Medical History No medical history recorded. Immunizations Vaccine Type Date Status Note Provider Nam e and Address Organization Details Recorded Time Influenza, split virus, quadrivalent, preservative 8 completed [facility] 14:[facility]:39 COVID-19 vaccine, vector-nr, rS-Ad26, PF, 0.5 mL 1 completed Audrey Gencarelle [facility] 07/07/2022 14:43:39 COVID-19, mRNA, LNP-S, PF, 30 mcg/0.3 mL dose 2 completed Audrey Gencarelle null, [facility] 07/07/2022 14:43:39 COVID-19, mRNA, LNP-S, PF, 30 mcg/0.3 mL dose 2 completed [facility] 14:43:39 Influenza, split virus, quadrivalent, preservative 1 completed Audrey Gencarelle null, [facility] 07/07/2022 14:43:39 Influenza, split virus, quadrivalent, preservative 9 completed [facility] 14:43:39 zoster live 9 completed Not Available [facility]14[facility]2020 21:43:00 Pneumococcal conjugate PCV 13 9 completed Audrey Gencarelle [facility] 07/07/2022 14:43:39 Influenza, split virus, quadrivalent, preservative 0 completed Audrey Gencarellkimmie dania, [facility] 07/07/2022 14:43:39 pneumococcal polysaccharide PPV23 0 completed Audreysa Verde dania, [facility] 07/07/2022 14:43:39 Past Encounters Encounter ID Performer Location Encounter Start Date Encounter Closed Date Diagnosis/Indication Diagnosis SNOMED-CT Code Diagnosis ICD10 Code Diagnosis Note [id number] July FILI Sandoval [facility] Internal Medicine [address] [facility], [place] [address] 08/03/2017 14:39:56 08/03/2017 16:39:11 Diarrhea 13457570 R19.7 resolved Dark stools 43485249 R19 .5 likely due to pepto will order FOBT to test if black stools persist Chronic ob structive pulmonary disease 39634340 J44.9 will give pt as needed/res cue inhaler for activity, in addition to his incruse [id number] Alexandro Purdy [facility] Internal [address],[place] [address] 09/17/2017 10:36:26 09/17/2017 11:27:30 Chronic kidney disease stage 3 587578767 N18.3 Cerebrovas cular accident 103806404 I63.9 Ischemic h eart disease 315193121 I25.9 no signif cp or dyspnea states does have some vague sob with exercisse but is alleviated with ntg prior to workout this reccomende d by dr wilkinson Type 1 robert betes mellitus 65577195 E10.22 still not controlled mainly secondary to diet Hypercholesterolemia 136 89965 E78.00 doing great with an LDL of 59 [id number] Alexandro Purdy [facility] Internal [facility] [address] [facility],[place] [address] 12/20/2017 11:46:48 12/20/2017 12:52:33 Hypercholesterolemia 60447099 E78.00 doing great with an LDL of 59 Diabetes mellitus 682812 09 E13.42 completely uncontroll ed pt is vastly noncomplia nt and not very involved in appropriat e diet desptie my warnings and pleadings that he will kill himself if he cont Diabetic p eripheral neuropathy 409880704 E11.40 seems to have developed a paronychia will need to treat with bactrim ds bid 10 and must be seen in follow up unfortunat e that pt is not willingly following an appropriat e diet and keeps his sugars down have expressed innumerabl e times over the years the need to eat better but this has been largely ignored Chronic ki dney disease stage 3 578504054 N18.3 diabetic and htn disease involved here and will cont current tx Paronychia of toe 833363 002 L03.039 will begin mupirocin oint Hearing loss 49882320 H9 1.93 [id number] Alexandro Purdy DO [facility] Internal Medicine [address] [facility],[place] [address] 03/22/2018 11:47:42 03/22/2018 13:05:18 Diabetes mellitus 95873696 E10.22 gluc down to 9.8 from 10.9 is somewhat better overall Hepatitis C screening 41 1391825 Z11.59 Diabetic p eripheral neuropathy 492756584 E11.40 unfortunat e that pt is not willingly following an appropriat e diet and keeps his sugars down have expressed innumerabl e times over the years the need to eat better but this has been largely ignored Ischemic h eart disease 348507211 I25.9 no signif cp or dyspnea states does have some vague sob with exercisse but is alleviated with ntg prior to workout this reccomende d by dr wilkinson Diarrhea 04784417 R19.7 long discussion s will try to get him to do 24 hr of clear liquids and to only take scrambled eggs if he needs to eat warned him to cut insulin dose in half if no better will get stool culture and treat cont prn immodium sparingly July FIIL Sandoval [facility] Medicine [address] [facility],[place] [address] 03/29/2018 11:05:47 03/29/2018 16:04:19 Diabetes mellitus 24322768 E10.22 gluc down to 9.8 from 10.9 is somewhat better overall Diarrhea 58174941 R19.7 needs to stool culture as previously ordered by MB do not recommend abx at this time as CT was neg for diverticul itis, will await stool cx and treat pending results continue probiotics continue bland diet with close monitoring of blood sugar after stool samples complete may take immodium again to help with sx likely will need to see GI for IBD r/o [id number] Alexandro Purdy DO [facility] Internal Medicine [address] [facility],[place] [facility] [place] [address] 04/01/2018 14:29:57 04/01/2018 15:59:57 Diarrhea 98625372 R19.7 long discussion s will try to get him to do 24 hr of clear liquids and to only take scrambled eggs if he needs to eat warned him to cut insulin dose in half if no better will get stool culture and treat cont prn immodium sparingly erick have [place] [id number] Alexandro Purdy [facility] Internal Medicine [address] [facility], [place] [facility] [place] [address] 07/22/2018 11:14:38 07/22/2018 12:00:33 Type 1 diabetes mellitus 57128302 E10.22 still not controlled mainly secondary to diet is 9.8 Hypercholesterolemia 136 33830 E78.00 doing great with an LDL of 59 Diabetic p eripheral neuropathy 859550724 E11.40 unfortunat e that pt is not willingly following an appropriat e diet and keeps his sugars down have expressed innumerabl e times over the years the need to eat better but this has been largely ignored [id number] Alexandro Purdy [facility] Internal Medicine [address] [facility],[place] [address] 11/29/2018 13:35:22 11/29/2018 14:13:50 Type 1 diabetes mellitus 74344336 E10.22 still not controlled mainly secondary to diet is 9.6 still very poorly controlled using insulin intermitte ntly Hypercholesterolemia 136 42727 E78.00 doing great with an LDL of 59 Diabetic p eripheral neuropathy 584147313 E11.40 unfortunat e that pt is not willingly following an appropriat e diet and keeps his sugars down have expressed innumerabl e times over the years the need to eat better but this has been largely ignored [id number] Alexandro Purdy DO [facility] Medicine [address] [facility],[place] [facility] [address] 03/07/2019 14:23:29 03/07/2019 14:47:07 Coronary arteriosclerosis 03805133 I25.10 asymptomat ic and is feeling ok otherwise will be seeing dr wilkinson Chronic ki dney disease stage 3 684461575 N18.3 diabetic and htn disease involved here and will cont current tx seen by dr hummel and was told he is stable Type 1 robert betes mellitus 94326231 E10.22 still not controlled mainly secondary to diet is 9.9 still very poorly controlled using insulin intermitte ntly has tid sliding scale and taking lantus 40 will have him go up to 50 lantus 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 705570683 B35.3 [id number] Alexandro Purdy, [facility] Internal Medicine [address] [facility],[place] [facility] [place] [address] 06/07/2019 09:22:05 06/07/2019 10:03:29 Type 1 diabetes mellitus 93091941 E10.22 still not controlled mainly secondary to diet is 9.9 again still no t careful with diet still very poorly controlled using insulin intermitte ntly has tid sliding scale and taking lantus 40 will have him go up to 50 lantus Ischemic h eart disease 282750742 I25.9 no signif cp or dyspnea states does have some vague sob with exercisse but is alleviated with ntg prior to workout this reccomende d by dr wilkinson Active or passive immunization 472871432 Z23 Abdominal aortic aneurysm screening 130233575 Z13.6 [id number] [facility] [address] [facility],[place] [address] 09/20/2019 10:35:46 09/20/2019 11:37:19 Type 1 diabetes mellitus 80288359 E10.22 still not controlled mainly secondary to diet a1c is 9.3 and was 9.9 again still no t careful with diet still very poorly controlled using insulin intermitte ntly has tid sliding scale and taking lantus 40 will have him go up to 50 lantus Right lowe r quadrant pain 364224254 R10.31 Diarrhea 42390539 R19.7 long discussion s will get stool culture and c diff will try to get him to do 24 hr of clear liquids and to only take scrambled eggs if he needs to eat if no better will get stool culture and treat cont prn immodium sparingly erick have him hold on to cipro rx [id number] TIM RITCHIE [facility] Internal Medicine [address] [facility], [place] [address] 11/27/2019 11:35:51 11/27/2019 12:12:41 Adult health examination 137086299 Z00.00 has had CMP, CBC and hemoglobin checked a1c is coming down Screening for cardiovascular system disease 555981221 Z13.6 needs cholestero l checked [id number] TIM RITCHIE [facility] Medicine [address] [facility],[place] [address] 03/19/2020 15:26:50 03/19/2020 16:30:34 Ischemic heart disease 317388865 I25.[address] Farr Type 1 robert betes mellitus 00080783 E10.9 returned to baseline numbers now Coronary arteriosclerosis 10089947 I25.10 severe, calcified LCX artery, too long to stent Stable angina 028919089 I20.8 doing better fu with cardiology [id number] Alexandro Purdy, [facility] Medicine [address] [facility],[place] [address] 04/01/2020 11:49:05 04/01/2020 12:38:42 Type 1 diabetes mellitus 32783028 E10.22 still not compliant with diet a 1c is now 10.4 still very poorly controlled using insulin intermitte ntly told him he must lose 10lbs before i see him next in 3 mo has tid sliding scale and taking lantus 40 will have him go up to 50 lantus but this is not heping given his diet we will need to split the lantus next if he doesnt Hypercholesterolemia 136 90691 E78.00 doing great with an LDL of 59 still excellent Ischemic h eart disease 123001637 I25.9 no signif cp or dyspnea states does have some vague sob with exercise but is alleviated with ntg prior to workout this reccomende d by dr wilkinson will switch to dr weinsier Diabetic p eripheral neuropathy 700962855 E11.40 unfortunat e that pt is not willingly following an appropriat e diet and keeps his sugars down have expressed innumerabl e times over the years the need to eat better but this has been largely ignored 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 977259211 E13.29 having nephropath y protein levels and will cont to see dr cordero [id number] Alexandro Purdy, [facility] Medicine [address],[place] [facility] [address] 06/24/2020 11:24:06 06/24/2020 12:35:35 Type 1 diabetes mellitus 58053200 E10.22 still not compliant with diet a 1c is now 9.9 was 9.7 and 10.4 etc for the past year he has never been below 9.7 still very poorly controlled using insulin intermitte ntly totally non compliant with diet told him he must lose 10lbs before i see him next in 3 mo has tid sliding scale and taking lantus 40 will have him go up to 50 lantus but this is not heping given his diet we will need to split the lantus next if he doesnt Hepatitis C screening 41 0612090 Z11.59 Diarrhea 06635743 R19.7 he has already had a major work up for this as noted including GI consult with colonoscop y \ long discussion s will get stool culture and c diff stop the rosuvatat and zetia for the week to see i f this helps he has them taken at nighttime so maybe a link?? 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 773149341 E11.43 long standing issue Ischemic h eart disease 886595620 I25.9 no signif cp or dyspnea states does have some cp with exercise but is alleviated with ntg prior to exercise this was reccomende d by dr wilkinson note he did have a recent cath for this that has shown a long plaque build up that is not amenable to stent etc Pain in left thumb 74242 09104 192491 M79.645 [id number] DO Asim Solorio Internal Medicine [address] [facility] [address],[place] [facility] [place] [address] 07/15/2020 14:09:15 07/15/2020 15:50:46 Chronic kidney disease stage 3 317526310 N18.30 long discuss has been stable and is doing ok overall his lab is stable too and we will have him follow with nephrology Coronary arteriosclerosis 41424425 I25.10 asymptomat ic and is feeling ok otherwise will be seeing dr wilkinson Diabetic p eripheral neuropathy 337804545 E11.40 unfortunat e that pt is not willingly following an appropriat e diet and keeps his sugars down have expressed innumerabl e times over the years the need to eat better but this has been largely ignored 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 722470644 E13.29 having nephropath y protein levels and will cont to see dr cordero Ischemic h eart disease 678765971 I25.9 no signif cp or dyspnea states does have some cp with exercise but is alleviated with ntg prior to exercise this was reccomende d by dr wilkinson note he did have a recent cath for this that has shown a long plaque build up that is not amenable to stent etc Type 1 robert betes mellitus 39258128 E10.22 FROM PRIOR still not compliant with diet a 1c is now 9.9 was 9.7 and 10.4 etc for the past year he has never been below 9.7 still very poorly controlled using insulin intermitte ntly totally non compliant with diet told him he must lose 10lbs before i see him next in 3 mo has tid sliding scale and taking lantus 40 will have him go up to 50 lantus but this is not heping given his diet we will need to split the lantus next if he doesnt Diarrhea 42386706 R19.7 he has already had a major work up for this as noted including GI consult with colonoscop y \ he still is having numerous bouts and nothing has resolved nor has it developed a pattern to follow long discussion s will get stool culture and c diff FROM PRIOR stop the rosuvatat and zetia for the week to see i f this helps he has them taken at nighttime so maybe a link?? stop dairy will have him stop the meds as noted if no better will get stool culture and treat cont prn immodium sparingly erick have him hold on to cipro rx Gastropare sis due to type 1 diabetes mellitus 285655113 E10.43 has had work up and a recent test for video cap was unsuccessf ul due to capsule never left the stomach due to his gastropare sis [id number] Alexandro Purdy DO [facility] Internal Medicine [address] [facility],[place] [address] 08/12/2020 10:30:46 08/12/2020 11:12:36 Ischemic heart disease 818552819 I25.9 no signif cp or dyspnea states does have some cp with exercise but is alleviated with ntg prior to exercise this was reccomende d by dr wilkinson note he did have a recent cath for this that has shown a long plaque build up that is not amenable to stent etc Type 1 robert betes mellitus 35616642 E10.22 FROM PRIOR still not compliant with diet a 1c is now 9.9 was 9.7 and 10.4 etc for the past year he has never been below 9.7 still very poorly controlled using insulin intermitte ntly totally non compliant with diet told him he must lose 10lbs before i see him next in 3 mo has tid sliding scale and taking lantus 40 will have him go up to 50 lantus but this is not heping given his diet we will need to split the lantus next if he doesnt Gastropare sis due to type 1 diabetes mellitus 026538111 E10.43 has had work up and a recent test for video cap was unsuccessf ul due to capsule never left the stomach due to his gastropare sis Diarrheal disorder 12975 3008 R19.7 he is at wits end will try cholestyra mine [id number] Alexandro Purdy DO [facility] Internal Medicine [address] [facility],[place] [address] 12/02/2020 11:22:15 12/02/2020 12:39:26 Adult health examination 101987095 Z00.01 overall remains stable and without major trouble Screening for cardiovascular system disease 211139389 Z13.6 will need more lab soon Screening for malignant neoplasm of colon 560233334 Z12.11 will order dna testing as he is not a good candidate for the colonoscop y Chronic ob structive pulmonary disease 88029212 J44.9 seems stable Stable angina 357898413 I20.8 asymptomat ic unless he exerts himself Dr Abraham told him to premedicat e with sl ntg prior to exertion next time Cerebrovas cular accident 004726338 I63.9 quiet, no new neuro symptoms Type 1 robert betes mellitus 89420039 E10.22 he is a bit better with his diet but we dont know how his sugars are doing so we will order a1c again FROM PRIOR appt last visit still not compliant with diet a 1c is now 9.9 was 9.7 and 10.4 etc for the past year he has never been below 9.7 still very poorly controlled using insulin intermitte ntly totally non compliant with diet told him he must lose 10lbs before i see him next in 3 mo has tid sliding scale and taking lantus 40 will have him go up to 50 lantus but this is not heping given his diet we will need to split the lantus next if he doesnt Diarrhea 50014385 R19.7 we will hold the cholestyra mine and see how the diarrhea behaves he will call us back with report if it does help we erick increase the dose as well as resume [id number] Alexandro Purdy, [facility] Internal Medicine [address],[place] [address] 03/26/2021 08:26:51 03/26/2021 11:55:35 Coronary arteriosclerosis 70281968 I25.10 asymptomat ic and is feeling ok otherwise will be seeing dr jaja Michele ki dney disease stage 3 744521632 N18.30 long discuss has been stable and is doing ok overall his lab is stable too and we will have him follow with nephrology Diabetic p eripheral neuropathy 167979663 E11.40 unfortunat e that pt is not willingly following an appropriat e diet and keeps his sugars down have expressed innumerabl e times over the years the need to eat better but this has been largely ignored 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 231141014 E13.29 having nephropath y protein levels and will cont to see dr cordero Edema of l ower extremity 939701454 R60.0 he is almost 2 + not keeping legs elevated Type 1 robert betes mellitus 62551707 E10.22 relates no change in diet has not lost wgt and does not appear to have really triedstill not compliant with diet a 1c is now 12 he was 9.9 was 9.7 and 10.4 etc for the past year he has never been below 9.7 still very poorly controlled using insulin intermitte ntly totally non compliant with diet told him he must lose 10lbs before i see him next in 3 mo has tid sliding scale and taking lantus 40 will have him go up to 50 lantus but this is not heping given his diet we will need to split the lantus next if he doesnt 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 964022731 E11.21 as above and is ongoing microalbum inuria still present in large numbers >650mg/L [id number] Alexandro Purdy DO [facility] Internal Medicine [address] [facility],[place] [address] 08/18/2021 09:57:27 08/18/2021 10:46:05 Disorder of kidney due to diabetes mellitus 002708726 E13.29 having nephropath y protein levels and will cont to see dr cordero Stable angina 924539440 I20.8 asymptomat ic unless he exerts himself Dr Abraham told him to premedicat e with sl ntg prior to exertion next timeuses antg preventiti vely if he is going to exert himself Cerebrovas cular accident 893659654 I63.9 quiet, no new neuro symptoms Chronic ob structive pulmonary disease 10012428 J44.9 seems stable Chronic ki dney disease stage 3 677217760 N18.30 long discuss has been stable and is doing ok overall his lab is stable too and we will have him follow with nephrology Type 1 robert betes mellitus 64154155 E10.9 doing much betterand feeling great states his a1c is doiwn to 8.1 now using the cgmworking on getting the pump through dr mcmillan office has tid sliding scale and taking lantus 40 will have him go up to 50 lantus but this is not heping given his diet we will need to split the lantus next if he doesnt [id number] TIM RITCHIE [facility] Internal Medicine [address] [facility],[place] [address] 09/01/2021 11:35:38 09/02/2021 13:42:45 Adult health examination 516996136 Z00.00 has had CMP, CBC and hemoglobin checked a1c is coming down Screening for cardiovascular system disease 862294203 Z13.6 needs cholestero l checked Screening for malignant neoplasm of colon 036803401 Z12.11 monitoring [id number] Alexandro Purdy DO [facility] Internal Medicine [address] [facility],[place] [address] 10/14/2021 08:32:27 10/14/2021 14:42:49 Acute osteomyelitis of phalanx of toe 704426819 M86.179 s/p surgical amputation sees surgeon every 2 days for dressing changeon abx as wellafter more healed we will get him set up with paper bag maker Leny ki dney disease stage 3 796309297 N18.30 long discuss has been stable and is doing ok overall his lab is stable too and we will have him follow with nephrology Chronic ob structive pulmonary disease 63458744 J44.9 seems stable Type 1 robert betes mellitus 68893028 E10.9 doing much better and feeling great states his a1c is down to 7.6 while in the hospital now using the cgm and on a very high protein dietworkin g on getting the pump through dr mcmillan office has tid sliding scale and taking lantus 40 will have him go up to 50 lantus but this is not heping given his diet we will need to split the lantus next if he doesnt [id number] TIM RITCHIE [facility] Medicine [address] [facility],[place] [address] 07/07/2022 14:42:22 07/08/2022 08:15:01 Hyperkalemia 36460888 E87.5 agreed to recheck his K+ level Atrial fibrillation 4943 6004 I48.0 restart the 50 mg BID Type 1 robert betes mellitus 48357175 E10.9 returned to baseline numbers now 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 201072598 E13.29 monitoring Acute oste omyelitis of phalanx of toe 773406226 M86.179 left leg amputated Stable angina 658130386 I20.8 doing okay; mild episodes of anginarela dinh to activityni tro tabs work well Chronic ob structive pulmonary disease 25719900 J41.0 stable Chronic ki dney disease stage 3 914771565 N18.31 monitoring Cerebrovas cular accident 217739611 I63.00 stable Paresthesi a of lower extremity 694766575 R20.2 will set up with wedge Amputated below knee 299 183767 Z89.512 will set up with power mobility wheelchair [id number] TIM RITCHIE [facility] Internal Medicine [address] [facility],[place]m [address] [place] [facility] [address] 08/25/2022 11:33:53 08/25/2022 13:42:18 Paresthesia of lower extremity 285841825 R20.2 right leg; chronic condition; no changes; still cannot bear weight on right side (significa nt atrophy due to this) Amputated above knee 299 [id number] Z89.612 unable to wear a prosthetic due to poor reaction to the skin [id number] TIM RITCHIE [facility] Internal [facility] [address] [facility],[place] [address] 09/15/2022 14:25:35 09/15/2022 15:49:32 Degeneration of lumbar intervertebral disc [id number] M51.36 agreed to specialist referral Cramp in lower limb 4499 92425 R25.2 agreed to start on lower dose per ER doc recommenda tiononly give half a dose of the 5 mg > see how he doesif not doing well on it will d/c and add to brake mechanic list Hyperkalemia [id number] E8 7.5 agreed to recheck his K+ levelwill set up with a nutritioni st Chronic ki dney disease stage 3 [id number] N18.[address] 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 Cordero Hyperkalemia 76311994 E8 7.5 stable; trending down [id number] TIM RITCHIE Internal Medicine [address] [facility],[place] [address] 06/11/2023 14:52:28 06/11/2023 15:32:06 Night sweats 77997881 R61 will recheck some levels Iron defic iency anemia 81193335 D50.8 will set up with recheck of his iron levels, see if current dose is appropriat e for the patient Amputated below knee 299 702521 Z89.512 bilateral amputee [id number] TIM RITCHIE Internal Medicine [address] [facility],[place] [address] 04/14/2024 08:53:17 04/14/2024 10:38:02 Amputated below knee 831556860 Z89.512 bilateral amputee Chronic ki dney disease stage 3 [id number] N18.[address] Cordero Bilateral weakness of upper limbs [id number] 6276448 M62.81 no change, continues with OT and PT Health Concerns Section Related Observation LastModified by Organization Detai ls LastModified Time None Recorded Concern Status LastModified by Organization Details LastModified Time None Recorded Advance Directives Directive None Recorded Payers Encounter Date Sequence Insurance Name Policy Number Policy Arvizu Covered Member ID Arvizu Member ID Guarantor Name 08/25/2022 1 [facility]: MEDICARE PPO BLUE (MEDICARE REPLACEMENT PPO) [id number] José Hope [id number] 31 José Hope 09/15/2022 1 [facility]: MEDICARE PPO BLUE (MEDICARE REPLACEMENT PPO) [id number] José Hope [id number] 31 José Hope 10/23/2022 1 [facility]: MEDICARE PPO BLUE (MEDICARE REPLACEMENT PPO) [id number] José Hope [id number] 31 José Hope 06/11/2023 1 [facility]: MEDICARE PPO BLUE (MEDICARE REPLACEMENT PPO) [id number] oJsé Hope [id number] 31 José Hope 04/14/2024 1 [facility]: MEDICARE PPO BLUE (MEDICARE REPLACEMENT PPO) [id number] José Hope [id number] 31 José Hope Notes Date Note Type Note Provider Name and Address Organization Details Recorded Time 3 text/html f/u wheelchair patient is wheelchair bound; he physically cannot use alternative assisting devices due to his left leg amputation and paralyzed right leg the patient is here for an evaluation for medical necessity for an electric wheelchairthe patient reports that he has difficulties with using a manual wheelchair getting in (via ramp) and around his chairthe patient is burning his hands on the wheels the patient has significant of loss of ADL's due to the fact he cannot maneuver himself around appropriately; it interferes with getting items; moving from room to room; unable to cook due to height of counters and his wheelchaircannot do his own laundry without assistance the patient has an above the knee amputation of the left legthe patient cannot use a prosthetic due to the reaction he gets when wearing on itthe patient develops severe swelling and pain with the prosthetic is attached the patient has a paralysed right leg; cannot put weight or use that since he cannot feel or move his right leg patient cannot walk (has no ability physically and functionally to so) the patient is also developing recurrent bed sores/ulcers due to patient being unable to move himselfhe has loss of strength in his upper extremities that makes transferring difficult without assistance patient cannot physically use a cane or walker for reasons listed above the patient reports that he has incidents here he has had falls out of the wheelchair due to how the breaks workpatient is at a high risk for brain bleeds if this were to happen again given current health and on a chronic blood thinner patient can't use a scooter; as listed only has one leg and that leg has no sensation to it and he cannot bear weight on it at all (has no function at all of the right leg) in my professional opinion as a medical professional after assessment of patient current health, current functional capabilities (or lack there of), and how this impacts his ALD's I feel it absolutely medically necessary for the patient to have an electric wheelchair TIM RITCHIE [address] [place] [address], [place], [address], [facility] 08/25/2022 12:44:37 3 text/html Hospital d/c the patient presented to the ER with AMS and agitationthe patient was very agitated and obtundedto found to be in DKA with metabolic acidosis devolving into metabolic acidosishis levels were corrected when he was in the ICU with insulin, fluids, and will rechecks of his levels d/c stable conditionhad a question about whether or not the baclofen caused the issue to start with a lower dose of the baclofen only once per day as needed the patient is waiting for his electric wheelchair after last meeting the patient agreed to operations trainer referral as well to discuss an appropriate diet for all his concerns agreed to adjust baclofen no other concerns today signed off on his MOLST form TIM RITCHIE [address] [place], [address], [facility] Internal Medicine 09/15/2022 15:00:41 3 text/html needs dr hernández. to discuss A1c and PSA tele-med phone callpatient consents to phone call the patient PSA is >0.10will send results to Dr. Caceres no symptoms [facility] Caceres soon the patient A1c is 5.9%stable, no symptoms did discuss his CMP; but he is being monitored by Dr. Worley results alreadycurrently being treated for hyperkalemiaresults are improved from prior patient is awaredoing well TIM RITCHIE [address] [facility], [place], [address], [facility] 10/23/2022 09:42:29 4 text/html hospital d/c the patient reports that he is physically doing wellthe patient is now a double amputee (bilateral LE's) the patient reports that mentally he is down due to the loss now of both his legsthe patient and I reviewed his medication list the patient reports that he still has to f/u with surgeon's office next week for removal of the remaining of his stitches the patient does not have any signs of infection the patient does note that he is having night sweatsdenies any other symptoms did have UTI in the hospital but has since resolved with use of IV abx the patient's sugar has looked good per patienthis A1c is 6.1% which is excellent controlstill using his insulin products pain is controlled, only using the APAP now mostly TIM RITCHIE [address] [place], [address], [facility] 06/11/2023 15:30:50 5 text/html f/u appt, wheelchair The patient is participating in this appointment via telemedicine communication with a phone call/video calling service ([employer])The patient consents to use of these platforms in place of an in-person appointment due to either sick symptoms the patient is presenting with or current office closure due to COVID exposure in order to keep our office staff and patients safe the patient reports that he is currently using his manual wheelchair, noticing he is having difficulties with being able to transfer himself to the toilet or to be able to reach his kitchen cabinets patient is a bilateral amputee, 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 the patient follows up regularly with cardiology and nephrologythe patient reports that his numbers are stablewaiting on a call back from cardio about his recent US carotid lasix dose decreased, every other day dosing due to difficulties with urinary incontinencebecause of his recurrent need to urinate mutliple times per day and the difficulty he has with transfer to lessen patient's need to use the bathroom as regularly the patient was recommended by nephrology for an updated colonoscopy which he is unable to have done due to requirement of the prep, he would be unable to get himself to the bathroom repeatdedly without incident give current circumstances, transfer is difficult and time consuming in order for my patient to perform his ADL's it is medically necessary to have this function of the power wheelchair in order to change height to avoid risk of falls and make it easier to take care of himself in his home he also has been having problems with muscle wasting throughout his body and bilateral upper extermity weakness, making it more difficult and dangerous to manually change the height while in his wheelchair by pushing himself up or down it is recommended patient get a height adjusting/elevation controlled power wheelchair TIM RITCHIE [address] [place], [address], [facility] 04/14/2024 10:19:55
--- OUTSIDE RECORDS SUMMARY | 2024-07-14 16:19 | XMS_ITS | Encounter Summary ---
Author Organization [facility], Address [address] [place] [address] Phone Care Team Providers Care Public Aid Eligibility Assistant Name Role Phone Alexandro Dow DO Primary Care Provider [phone] Encounter Details Date Type Department Care Team (Late Contact Info) Description 02/23/2020 Orders Only [facility] - [address] [place] [address] Inez Cordero MD Chronic kidney disease, stage 3 (moderate) Social History Tobacco Use Types Packs/Day Years Used Date Smoking Tobacco: Never Alcohol Use Standard Drinks/Week Comments Yes 0 (1 standard drink = 0.6 oz pure alcohol) Alcoholic Drinks/day: Occasional social drink Sex and Gender Information Value Date Recorded Sex Assigned at Not on file Legal Sex Male 4:31 PM EST Gender Identity Not on file Sexual Orientation Not on file Occupation Industry 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 - Diane [address] [place] [phone] Monty Pal MD [address] [place] [address] [place] [phone] documented as of this encounter Visit Diagnoses Diagnosis Chronic kidney disease, stage 3 (moderate) documented in this encounter Care Teams Public Aid Eligibility Assistant Relationship Specialty Start Date End Date ColleenAlexandro mtz [address] [facility] [place] [address] PCP - General 02/14/19 documented as of this encounter
--- OUTSIDE RECORDS SUMMARY | 2024-07-14 16:19 | XMS_ITS | Encounter Summary ---
Author Organization [facility], Address [address] [place] [address] Phone Care Team Providers Care Class 1 Owner Operator Name Role Phone Alexandro Dow DO Primary Care Provider [phone] Encounter Details Date Type Department Care Team (Late Contact Info) Description 09/08/2022 Documentation Only [facility] Te[address] [place] [address] Monty Pal MD [address] [place] [address] 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 [address] documented as of this encounter Visit Diagnoses Not on filedocumented in this encounter Care Teams Class 1 Owner Operator Relationship Specialty Start Date End Date Alexandro Dow DO [address] [facility] [place] [address] PCP - General 02/14/19 documented as of this encounter
--- OUTSIDE RECORDS SUMMARY | 2024-07-14 16:19 | XMS_ITS | Continuity of Care Document ---
Author Organization [facility] Address [address] [facility] [place] [address] [place] [address] Assessment No assessment recorded. Plan of Treatment Reminders Order Date Submit Date Provider Last Modified By Organization Details Last Modified Time Details Appointments Hospital F/U 2024 02:00P M DR PURDY Not available Not available Not available FOLLOW UP 15 2024 11:00A M DR PURDY Not available Not available Not available Lab CBC w/ auto diff 2024 025 [facility], [address] [place] [address], [id number], 07/14/2024 14:28:24 iron + TIBC + ferritin, serum 2024 025 [facility], [address] [place] [address], [id number], 07/14/2024 14:28:24 CMP, serum or plasma 2024 025 [facility], [address] [place] [address], [id number], 07/14/2024 14:28:24 Referral None recorded. Procedures None recorded. Surgeries None recorded. Imaging None recorded. Medication Orders None recorded. Patient TargetsNo targets recorded. Patient Instructions Encounter Date Encounter Id Patient Instructions Last Modified By Organization Details Last Modified Time 07/14/2024 [id number] atrial fibrillation: care instructions Not available 07/14/2024 14:27:07 anemia: care instructions Not available 07/14/2024 14:27:07 pulse oximetry* GALDINO Not available 07/14/2024 16:07:54 Reason for Referral None Reported. Results Created Date Observation Date Name Description Value Unit Range Abnormal Flag Note LastModifiedBy Organization Detail LastModifiedTime 07/15/1907/14/2024 pulse oxime try* Result 98 Not Available [facility] [address] [facility] [address], [place], [address], 07/10/2024 14:23:19 06/29/1906/28/2024 CT, head + brain , w/o contr ast No observ ation record ed. [address] (Emergency Room) [address] [place] [address], [address], 06/28/2024 08:20:08 06/29/1906/28/2024 CT, angio gram, chest , w/wo contr ast No observ ation record ed. [address] (Emergency Room) [address] [place], [address], 06/28/2024 08:20:48 Result Notes None recorded. 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 006675398 Active 2020 Alexandro Purdy DO [address] [place] [address], [address], [facility] 15:05:18 Diarrhea l disorder 786684048 Active 2020 Alexandro Purdy DO [address] [place] [address], [address], [facility] 1 10:59:49 Right carotid artery stenosis 14348812826 9100 Active 2020 Alexandro Purdy, DO [address] [place] [address], [address], [facility] 1 11:43:36 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 024816133 Active 2020 Alexandro Purdy, DO [address] [place] [address], [address], [facility] 1 11:37:38 Stable angina 693326781 Active 2021 Alexandro Purdy, DO [address] [place] [address], [address], [facility] 2 09:59:24 Chronic obstruct kathy pulmonar y disease 05775191 Active 2021 Alexandro Purdy, DO [address] [place] [address], [address], [facility] 2 09:59:34 Acute osteomye litis of phalanx of toe 803969257 Active 2021 Alexandro Purdy, DO [address] [place] [address], [address], [facility] 2 14:16:03 Acute low back pain 376591858 Active 2021 TIM RITCHIE [address] [place] [address], [address], [facility] 2 15:21:29 Low back pain 970194306 Active 2021 TIM RITCHIE [address] [place] [address], [address], [facility] 2 10:29:00 Paresthe samuel of lower extremit y 708709018 Active 2022 Alexandro Purdy, DO [address] [place], [address], [facility] 3 15:23:27 Type 2 diabetes mellitus 54921479 Completed 201709/17/2017 TIM RITCHIE [address] [place], [address], [facility] 4 14:38:53 Gastroes ophageal reflux disease 923060361 Active 2017 Not Available [facility] 21:43:00 Cerebrov ascular accident 372658534 Active 2017 Not Available [facility] 21:43:00 Coronary arterios clerosis 50810457 Active 2017 Not Available [facility] 21:43:00 Myocardi al infarcti on 15552030 Active 2017 Not Available [facility] 21:43:00 Retinopa thy due to diabetes mellitus 7749096 Active 2017 Not Available [facility] 21:43:00 Gastropa resis due to type 2 diabetes mellitus 735776918 Completed 201708/12/2020 Alexandro Purdy DO [address] [place], [address], [facility] 1 10:57:12 Disorder of kidney due to diabetes mellitus 341529248 Active 2017 Not Available [facility] 1 21:43:00 Microalb uminuria 469248224 Active 2017 Not Available [facility] 1 21:43:00 Carcinom a of prostate 014815284 Active 2017 Not Available [facility] 21:43:00 History of tobacco use 73805780557 03 Active 2017 Not Available [facility] 21:43:00 B12 deficien cy monitori ng status 537130623 Active 2017 Not Available [facility] 21:43:00 Acute non-ST segment elevatio n myocardi al infarcti on 182489605 Active 2017 Not Available [facility] 1 21:43:00 Chronic kidney disease stage 3 343836017 Active 2017 Not Available [facility] 1 21:43:00 Pulmonar y emphysem a 67300863 Active 2017 Not Available [facility] 1 21:43:00 Anemia 988518832 Active 2017 Not Available [facility] 1 21:43:00 Hyperkal emia 39002155 Active 2022 TIM RITCHIE [address] [place], [address], [facility] 3 15:42:29 Atrial fibrilla tion 19320219 Active 2022 TIM RITCHIE [address] [place], [address], [facility] 3 15:44:28 Acute osteomye litis of phalanx of toe 471959250 Active 2022 TIM RITCHIE [address] [place], [address], [facility] 3 15:52:15 Degenera tion of lumbar interver tebral disc 23895668 Active 2022 TIM RITCHIE [address] [place], [address], [facility] 3 15:35:06 Pain in right lower limb 822639173 Active 2022 TIM RITCHIE [address] [place], [address], [facility] 3 15:39:20 Cramp in lower limb 284737972 Active 2022 TIM RITCHIE [address] [place], [address], [facility] 3 15:42:46 Spasm 07737717 Active 2022 TIM RITCHIE [address] [place], [address], [facility] 3 12:45:28 Retinopa thy due to diabetes mellitus 8811196 Active 2022 TIM RITCHIE [address] [place], [address], [facility] 3 09:39:56 Acute urinary tract infectio n 958269043 Active 2022 TIM RITCHIE [address] [place], [address], [facility] 3 12:30:08 Night sweats 23101028 Active 2023 TIM RITCHIE [address] [place] [address], [address], [facility] 4 15:20:51 Iron deficien cy anemia 27505294 Active 2023 TIM RITCHIE [address] [place] [address], [address], [facility] 4 15:21:16 Chronic hiccup 275836462 Active 2023 TIM RITCHIE [address] [place] [address], [address], [facility] 4 14:11:21 Type 2 diabetes mellitus 08816837 Active 2023 TIM RITCHIE [address] [place] [address], [address], [facility] 4 14:38:53 Bilatera l weakness of upper limbs 00233855064 395591 Active 2023 TIM RITCHIE [address] [place] [address], [address], [facility] 4 15:02:38 Acute kidney injury caused by contrast agent 93426954348 9105 Active 2024 Alexandro Purdy DO [address] [place] [address], [address], [facility] 5 14:24:00 Ischemic heart disease 863551369 Active 2017 Not Available [facility] 1 21:43:00 Hypercho lesterol emia 78626035 Active 2017 Not Available [facility] 1 21:43:00 Notes:Some problems listed i n Documents: #[id number], #[id number], #[id number], #[id number] could not be added to this patient's chart. Please review these documents and add these problems to the patient's chart manually as needed. Problem Notes None recorded. Medical Equipment None Reported. Allergies Allergen ID Allergen Name Allergen Category Reaction Reaction Severity Criticality Documentation Date Start Date Code Code System Note Provider Name and Address Organization Details Recorded Time 640 penicilli n V Not available Not available Not available Not available 06/30/2017 7984 [facility] 15:02:18 641 niacin medicatio n Not available Not available Not available 06/30/2017 7393 RxNorm Radha najera [facility] 8 15:02:23 6891 gabapenti n medicatio n Not available Not available Not available 09/15/2022 13845 RxNorm TIM RITCHIE [address] [place], [address], [facility] 3 14:43:28 Medications Name Sig Start Date [...] Available Not Available nystatin/t riamcinolo ne acetonide 418013-7.1 unit/gm-% crea 07/22 completed Not Available Not [...] Available Not Available furosemide 40 mg tablet 1 eve3ry other day active Not Available Not Available No t Available clindamyci n HCl 300 mg capsule [...] release 24 hr take 3 tab daily 07/14 completed Not Available Not Available Not Available Lantus U-100 Insulin 100 unit/mL subcutaneo [...] hours by oral route for 10 days. 07/14 completed Not Available Not Available Not Available sulfametho xazole 800 mg-trimeth oprim 160 mg tablet TAKE 1 TABLET BY MOUTH EVERY 12 HOURS FOR 10 DAYS 07/14 completed Not Available Not Available Not Available hydrocodon e 10 mg-acetami nophen 325 [...] t Available ofloxacin 0.3 % ear drops 07/14 completed Not Available Not Available Not Available prednisolo ne acetate 1 % eye drops,susp ension SHAKE LIQUID AND INSTILL 1 DROP IN LEFT EYE FOUR TIMES DAILY AFTER SURGERY 08/12 completed Not Available Not Available Not Available diazepam 2 mg tablet TAKE 1 TABLET BY MOUTH TWICE DAILY FOR 5 DAYS 07/14 completed Not Available Not Available Not Available baclofen 10 mg tablet TAKE 1 [...] 20 mg tablet TAKE ONE TABLET BID 07/14 completed Not Available Not Available Not Available gabapentin 100 mg capsule 08/25 completed [...] RIGHT FOOT WOUND BY TOPICAL ROUTE DAILY 07/14 completed Not Available Not Available Not Available Cipro 250 mg tablet Take 1 [...] t Available rosuvastat in 10 mg tablet Take 1 tablet every day by oral route. active Not Available Not Available No t Available rosuvastat in 40 mg tablet TAKE 1 TABLET BY MOUTH EVERY DAY 07/14 completed Not Available Not Available Not Available metoprolol tartrate 25 mg tablet 07/07 [...] strips USE TO TEST FOUR TIMES DAILY 07/14 completed Not Available Not Available Not Available Incruse Ellipta 62.5 mcg/actuat ion powder for inhalation INHALE 1 PUFF BY MOUTH EVERY DAY 07/14 completed Not Available Not Available Not Available OneTouch Verio Flex meter Test 4 [...] completed Not Available Not Available Not Available [employer] Edilson 2 Sensor kit USE DIRECTED active Not Available Not Available No t Available Fluad Quad ( 65yr up)(PF) 60 mcg (15 mcg x 4)/0.5mL IM syringe 04/01 completed Not Available Not Available Not Available Vitals Date Recorded Heart rate Oxygen saturation Oxygen saturation in Arterial blood by Pulse oximetry Systolic blood pressure Diastolic blood pressure Provider Name and Address Organization Details Last Updated DateTime 5 76 /min 98 % 98 % 142 mm[Hg] 78 mm[Hg] Alexandro Purdy, DO [address] [place], [address], [facility] 5 14:01:27 Social History Question Answer Notes LastModified by Organizat ion Details LastModified Time Tobacco Smoking Status Former Smoker Not Available [facility] 02/13/2020 03:36:24 What Was The Date Of Your Most Recent Tobacco Screening? 07/14/2024 Information not available 07/14/2024 How Many Years Have You Smoked Tobacco? 6 [id number] Information not available 02/13/2020 Do You Or Have You Ever Used Any Other Forms Of Tobacco Or Nicotine? No [email or web address] Information not available 07/07/2022 Sex: Unknown Functional Status None recorded. Mental Status None recorded. Family History Nothing Reported. Medical History No medical history recorded. Immunizations Vaccine Type Date Status Note Provider Nam e and Address Organization Details Recorded Time Influenza, split virus, quadrivalent, preservative 8 completed Audrey Gencarelle [facility] 07/07/2022 14:43:39 COVID-19 vaccine, vector-nr, rS-Ad26, PF, 0.5 mL 1 completed Audrey Gencarelle dania [facility] 07/07/2022 14:43:39 COVID-19, mRNA, LNP-S, PF, 30 mcg/0.3 mL dose 2 completed Audrey Gencarellkimmie najera [facility] 07/07/2022 14:43:39 COVID-19, mRNA, LNP-S, PF, 30 mcg/0.3 mL dose 2 completed Audrey Gencarelle null, [facility] 07/07/2022 14:43:39 Influenza, split virus, quadrivalent, preservative 1 completed Audrey Gencarelle null, [facility] 07/07/2022 14:43:39 Influenza, split virus, quadrivalent, preservative 9 completed Audrey Gencarelle null, [facility] 07/07/2022 14:43:39 zoster live 9 completed Not Available [facility] 05/14/2020 21:43:00 Pneumococcal conjugate PCV 13 9 completed Audrey Gencarelle [facility], [facility] 07/07/2022 14:43:39 Influenza, split virus, quadrivalent, preservative 0 completed Audrey Gencarelle null, [facility] 07/07/2022 14:43:39 pneumococcal polysaccharide PPV23 0 completed Audrey Gencarelle [facility], [facility] 07/07/2022 14:43:39 Past Encounters Encounter ID Performer Location Encounter Start Date Encounter Closed Date Diagnosis/Indication Diagnosis SNOMED-CT Code Diagnosis ICD10 Code Diagnosis Note [id number] Alexandro Purdy [facility] [address] [facility] [address] 07/14/2024 13:52:15 07/14/2024 14:43:15 Depression screening 910732500 Z13.31 neg Chronic ob structive pulmonary disease 66293735 J41.0 seems stable Acute kidn ey injury caused by contrast agent 1135327382 70002 N14.11 we need follow up lab and we have no records from his hospital stay Anemia 507504024 D64.9 last hgb was 8 Atrial fibrillation 4943 6004 I48.0 currently stable Ischemic h eart disease 190126604 I25.9 no signif cp or dyspnea states does have some cp with exercise but is alleviated with ntg prior to exercise this was reccomende d by dr wiliknson note he did have a recent cath for this that has shown a long plaque build up that is not amenable to stent etc Health Concerns Section Related Observation LastModified by Organization Detai ls LastModified Time None Recorded Concern Status LastModified by Organization Details LastModified Time None Recorded Payers Encounter Date Sequence Insurance Name Policy Number Policy Arvizu Covered Member ID Arvizu Member ID Guarantor Name 07/14/2024 1 [facility] MED[place]UE (MEDICARE REPLACEMENT PPO) [id number] José Hope [id number] José Hope Notes Date Note Type Note Provider Name a nd Address Organization Details Recorded Time 5 text/html ws seen at hosp for poss cva and a mri was orderEd but got laid down and started with vomiting every time he laid flatct done was negative but appparently the contrast is what caused the keyla to have issues during the hospitalization he was found to have kidney failyure but was diuresed and his numbers actually improved and was discharged on wednesdayI HAVE NO MED RECORDS FROM THE HOSPITAL Alexandro Purdy, DO [address] [facility], [place], [address], [facility] 07/14/2024 14:27:59
--- OUTSIDE RECORDS SUMMARY | 2024-07-14 16:19 | XMS_ITS | Encounter Summary ---
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 [address] documented as of this encounter Visit Diagnoses Not on filedocumented in this encounter Care Teams Tube Sorter Relationship Specialty Start Date End Date Alexandro Dow DO [address] [facility] [place] [address] PCP - General 02/14/19 documented as of this encounter
--- OUTSIDE RECORDS SUMMARY | 2024-07-14 16:19 | XMS_ITS | Encounter Summary ---
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 [address] documented as of this encounter Visit Diagnoses Not on filedocumented in this encounter Care Teams Therapeutic Specialist Relationship Specialty Start Date End Date Alexandro Dow DO [address] [facility] [place] [address] PCP - General 02/14/19 documented as of this encounter
--- OUTSIDE RECORDS SUMMARY | 2024-07-14 16:19 | XMS_ITS | Encounter Summary ---
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 [address] documented as of this encounter Visit Diagnoses Not on filedocumented in this encounter Care Teams Manager Demand Relationship Specialty Start Date End Date Alexandro Dow DO [address] [facility] [place] [address] PCP - General 02/14/19 documented as of this encounter
--- OUTSIDE RECORDS SUMMARY | 2024-07-14 16:20 | XMS_ITS | Encounter Summary ---
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 [address] documented as of this encounter Visit Diagnoses Not on filedocumented in this encounter Care Teams Clinical Instructor Relationship Specialty Start Date End Date Alexandro Dow DO [address] [facility] [place] [address] PCP - General 02/14/19 documented as of this encounter
--- OUTSIDE RECORDS SUMMARY | 2024-07-14 16:20 | XMS_ITS | Encounter Summary ---
Author Organization [facility] [place], Address [address] [place] [address] Phone Care Team Providers Care Bus Steward Name Role Phone Alxeandro Dow DO Primary Care Provider Encounter Details Date Type Department Care Team (Late Contact Info) Description 11/12/2023 Orders Only [facility] Tez [address] [place] [address] Monty Pal MD [address] [place] [address] 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 [address] documented as of this encounter Visit Diagnoses Diagnosis Chronic kidney disease, stage 4 (severe) (HCC) documented in this encounter Care Teams Bus Steward Relationship Specialty Start Date End Date Alexandro Dow DO [address] [facility] [place] [address] PCP - General 02/14/19 documented as of this encounter
--- OUTSIDE RECORDS SUMMARY | 2024-07-14 16:20 | XMS_ITS | Encounter Summary ---
Author Organization [facility] [place], Address [address] [place] [address] Phone Care Team Providers Care Chair Inspector And Leveler Name Role Phone Alexandro Dow DO Primary Care Provider Encounter Details Date Type Department Care Team (Late Contact Info) Description 01/07/2024 Orders Only [facility] Diane [address] [place] [address] Monty Pal MD [address] [place] [address] 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 [address] documented as of this encounter Visit Diagnoses Diagnosis Chronic kidney disease, stage 4 (severe) (HCC) documented in this encounter Care Teams Chair Inspector And Leveler Relationship Specialty Start Date End Date Alexandro Dow DO [address] [facility] [place] [address] PCP - General 02/14/19 documented as of this encounter
--- OUTSIDE RECORDS SUMMARY | 2024-07-14 16:20 | XMS_ITS | Encounter Summary ---
Author Organization [facility] [place], Address [address] [place] [address] Phone Care Team Providers Care Photo Colorer Name Role Phone Alexandro Dow DO Primary Care Provider [phone] Encounter Details Date Type Department Care Team (Late Contact Info) Description 09/17/2023 Orders Only [facility] Diane [address] [place] [address] Monty Pal MD [address] [place] [address] 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 [address] documented as of this encounter Visit Diagnoses Diagnosis Chronic kidney disease, stage 4 (severe) (HCC) documented in this encounter Care Teams Photo Colorer Relationship Specialty Start Date End Date Alexandro Dow DO [address] [facility] [address] PCP - General 02/14/19 documented as of this encounter
--- OUTSIDE RECORDS SUMMARY | 2024-07-14 16:20 | XMS_ITS | Encounter Summary ---
Author Organization [facility] [place], Address [address] [place] [address] Phone Care Team Providers Care Calender Let Off Operator Name Role Phone Alexandro Dow DO Primary Care Provider [phone] Encounter Details Date Type Department Care Team (Late Contact Info) Description 03/03/2024 Orders Only [facility] Tez [address] [place] [address] Monty Pal MD [address] [place] [address] 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 [address] documented as of this encounter Visit Diagnoses Diagnosis Chronic kidney disease, stage 4 (severe) (HCC) documented in this encounter Care Teams Calender Let Off Operator Relationship Specialty Start Date End Date Alexandro Dow DO [address] [facility] [place] [address] PCP - General 02/14/19 documented as of this encounter
--- OUTSIDE RECORDS SUMMARY | 2024-07-14 16:20 | XMS_ITS | Encounter Summary ---
Author Organization [facility] [place], Address [address] [place] [address] Phone Care Team Providers Care Sex Crimes Detective Name Role Phone Alexandro Dow DO Primary Care Provider [phone] Encounter Details Date Type Department Care Team (Late Contact Info) Description 12/10/2023 Orders Only [facility] Tez [address] [place] [address] Monty Pal MD [address] [place] [address] 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 [address] documented as of this encounter Visit Diagnoses Diagnosis Chronic kidney disease, stage 4 (severe) (HCC) documented in this encounter Care Teams Sex Crimes Detective Relationship Specialty Start Date End Date Alexandro Dow DO [address] [facility] [place] [address] PCP - General 02/14/19 documented as of this encounter
--- OUTSIDE RECORDS SUMMARY | 2024-07-14 16:20 | XMS_ITS | Encounter Summary ---
Author Organization [facility] [place], Address [address] [place] [address] Phone Care Team Providers Care Digital Marketing Apprentice Name Role Phone Alexandro Dow DO Primary Care Provider [phone] Encounter Details Date Type Department Care Team (Late Contact Info) Description 10/15/2023 Orders Only [facility] Tez [address] [place] [address] Monty Pal MD [address] [place] [address] 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 [address] documented as of this encounter Visit Diagnoses Diagnosis Chronic kidney disease, stage 4 (severe) (HCC) documented in this encounter Care Teams Digital Marketing Apprentice Relationship Specialty Start Date End Date Alexandro Dow DO [address] [facility] [place] [address] PCP - General 02/14/19 documented as of this encounter
--- OUTSIDE RECORDS SUMMARY | 2024-07-14 16:20 | XMS_ITS | Encounter Summary ---
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 [address] documented as of this encounter Visit Diagnoses Not on filedocumented in this encounter Care Teams Marine Geologist Relationship Specialty Start Date End Date Alexandro Dow DO [address] [facility] [place] [address] PCP - General 02/14/19 documented as of this encounter
--- OUTSIDE RECORDS SUMMARY | 2024-07-14 16:20 | XMS_ITS | Encounter Summary ---
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 [address] documented as of this encounter Visit Diagnoses Not on filedocumented in this encounter Care Teams Rotary Swaging Machine Operator Relationship Specialty Start Date End Date Alexandro Dow DO [address] [facility] [place] [address] PCP - General 02/14/19 documented as of this encounter
--- OUTSIDE RECORDS SUMMARY | 2024-07-14 16:20 | XMS_ITS | Encounter Summary ---
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 [address] documented as of this encounter Visit Diagnoses Not on filedocumented in this encounter Care Teams Manager Business Continuity Relationship Specialty Start Date End Date Victor M DO Alexandro [address] [place] [address] PCP - General 02/14/19 documented as of this encounter
--- OUTSIDE RECORDS SUMMARY | 2024-07-14 16:20 | XMS_ITS | Encounter Summary ---
Author Organization [facility] [place], Address [address] [place] [address] Phone Care Team Providers Care Journalism Intern Name Role Phone Alexandro Dow DO Primary Care Provider [phone] Encounter Details Date Type Department Care Team (Late Contact Info) Description 03/31/2024 Orders Only [facility] Tez [address] [place] [address] Monty Pal MD [address] [place] [address] 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 [address] documented as of this encounter Visit Diagnoses Diagnosis Chronic kidney disease, stage 4 (severe) (HCC) documented in this encounter Care Teams Journalism Intern Relationship Specialty Start Date End Date Alexandro Dow DO [address] [facility] [place] [address] PCP - General 02/14/19 documented as of this encounter
--- OUTSIDE RECORDS SUMMARY | 2024-07-14 16:20 | XMS_ITS | Encounter Summary ---
Author Organization [facility] [place], Address [address] [place] [address] Phone Care Team Providers Care It Help Desk Technician Name Role Phone Alexandro Dow DO Primary Care Provider [phone] Encounter Details Date Type Department Care Team (Late Contact Info) Description 02/04/2024 Orders Only [facility] Tez [address] [place] [address] Monty Pal MD [address] [place] [address] 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 [address] documented as of this encounter Visit Diagnoses Diagnosis Chronic kidney disease, stage 4 (severe) (HCC) documented in this encounter Care Teams It Help Desk Technician Relationship Specialty Start Date End Date Alexandro Dow DO 6 [facility] [place] [address] PCP - General 02/14/19 documented as of this encounter
[2024-07-14 17:41] LABS: MANUAL DIFF FLAG NO
[2024-07-14 17:55] LABS: Basophils Absolute Auto 0.1 X10*3/uL (0.0-0.2); Basophils Percent Auto 0.7 % (0-2); Eosinophils Absolute Auto 0.4 X10*3/uL (0.0-0.4); Hematocrit 23.4 % (42.0-52.0); Hemoglobin 7.5 g/dl (14.0-18.0); Imm Gran Abs Auto 0.04 X10*3/uL (0.00-0.03); Imm Gran Pct Auto 0.5 % (0.0-0.4); Lymphocytes Absolute Auto 1.2 X10*3/uL (1.2-4.9); Lymphocytes Percent Auto 13.8 % (20-40); Mean Corpuscular HGB Conc 32.1 g/dl (31.0-36.0); Mean Corpuscular Volume 93.6 fL (80.0-98.0); Mean Platelet Volume 9.2 fL (9.4-12.4); Monocytes Absolute Auto 0.9 X10*3/uL (0.1-1.2); Monocytes Percent Auto 10.6 % (2-11); Neutrophils Absolute Auto 6.1 x10*3/uL (2.0-8.3); Neutrophils Percent Auto 69.4 % (45-73); Platelet Count 212 X10*3/uL (160-400); Red Cell Distribution Width 13.1 % (11.0-16.0); White Blood Count 8.8 X10*3/uL (4.8-10.8)
[2024-07-14 18:05] LABS: Alanine Aminotransferase 11 U/L (0-40); Albumin Level 3.4 g/dL (3.5-5.0); Alkaline Phosphatase 70 U/L (39-117); Anion Gap 12 (12-20); Aspartate Amino Transferase 19 U/L (5-37); Bilirubin Total 0.3 mg/dL (0.0-1.0); Blood Urea Nitrogen 49 mg/dL (9-16); Calcium 8.7 mg/dL (8.4-10.2); Carbon Dioxide 27 mmol/L (22-29); Chloride 108 mmol/L (96-108); Estimated Glomerular Filt Rate 17; Glucose Random 143 mg/dL (60-115); Iron 47 mcg/dL (45-160); Percent Iron Saturation 22 % (15-50); Potassium 4.2 mmol/L (3.3-5.1); Sodium 143 mmol/L (135-145); Total Iron Binding Capacity 209 mcg/dL (228-428); Total Protein 6.3 g/dL (6.5-8.0); Unsaturated Iron Binding 162 ug/dL
[2024-07-14 18:23] LABS: Ferritin 250 ng/mL (20-250)
== END 2024-07-14 14:50 | disposition home or self-care (01) ==
LOC: HO.MANLDS 14:49
PROVIDERS: Visit Provider Internal Medicine
DX: N14.11 Contrast-induced nephropathy (principal); D64.9 Anemia, unspecified
CPT/HCPCS: 36415; 80053; 82728; 83540; 85025